=== PATIENT | female | born 1945 | race Caucasian/White ===

== ENCOUNTER → 2016-11-03 | Outpatient (CLI) | payer MEDICARE, OTHER ==
[~2016-11-03] MED LIST: ALBU2.5V7 AEROSOL; ATOR20TA18 PO; BUDE0.5A IH; CALC1TAB47 PO; CETI10TA4 PO; CODE30TA2 PO; CYCL-375 PO; DOCU-168 PO; FENT1PAT65 TOP; FURO-33 PO; HUM10VIA SQ; LACT1CAP50 PO; LISI-621 PO; METF500T4 PO; OMEP-29 PO; ONDA4TAB10 PO; OXYB5TAB PO; [UNRECOGNIZED DRUG - CODE] PO
[2016-11-03 12:51] LABS: BASOPHILS % (AUTO) 0.4 % (0-2); EOSINOPHILS # (AUTO) 0.3 T/MM3 (0-0.5); EOSINOPHILS % (AUTO) 3.3 % (0-4); HCT - HEMATOCRIT 38.8 % (36-46); HGB - HEMOGLOBIN 12.8 GM/DL (12-16); IMMATURE GRANULOCYTE # (AUTO) 0.01 T/MM3 (0.00-0.03); IMMATURE GRANULOCYTE % (AUTO) 0.1 % (0.0-0.5); LYMPHOCYTES # (AUTO) 2.2 T/MM3 (1-4.8); LYMPHOCYTES % (AUTO) 25.8 % (23-45); MEAN CORPUSCULAR HGB 31.4 UUG (26-34); MEAN CORPUSCULAR VOLUME 95.3 UM3 (80-100); MEAN PLATELET VOLUME 9.8 UM3 (9.4-12.4); MONOCYTES # (AUTO) 0.6 T/MM3 (0-0.8); MONOCYTES % (AUTO) 6.7 % (0-9.0); NEUTROPHILS #(AUTO)-ABSOLUTE 5.4 T/MM3 (1.8-7.7); NEUTROPHILS % (AUTO) 63.7 % (33-66); RED BLOOD COUNT 4.07 M/MM3 (4.00-5.20); WBC - WHITE BLOOD COUNT 8.5 T/MM3 (4.5-11.0)
== END ==
LOC: LAB 12:20
PROVIDERS: ATTEND Family Medicine
DX: N39.0 Urinary tract infection, site not specified (principal); R53.83 Other fatigue; I10 Essential (primary) hypertension
CPT/HCPCS: 36415; 84550; 85025

== ENCOUNTER 2017-07-18 00:17 | Inpatient (IN) ==
[2017-07-18] MEDS ORDERED: NS 1,000 ML IV ONE (00:24)
--- NOTE | 2017-07-18 00:26 | Emergency Department Report ---
General Adult HPI - General Stated complaint: High blood sugar Time Seen by Provider: 07/18/17 00:22 Source: EMS Mode of arrival: EMS Limitations: altered mental status - History of Present Illness HPI narrative: Patient is a 72-year-old female brought to the emergency department via EMS. Patient does have a history of diabetes, hypertension, asthma. EMS was originally called out for possible CODE BLUE. Patient was sitting on a toilet in a bathroom at work, unresponsive leaning to the left. Patient was originally thought to not be breathing, however patient was found to be breathing, EMS was called. Patient was tachycardic and hypertensive very agitated on arrival by EMS. EMS obtained blood sugar that was listed as "high" on their machine, unable to start IV her receive other laboratories. Patient was restrained to the gurney and brought to the ER for evaluation. On arrival patient hypertensive tachycardic, yelling for help, does not respond to questions - Related Data Home Medications Medication Instructions Recorded Confirmed Calcium Carbonate/Vitamin D3 1 tab PO DAILY #0 04/05/10 05/26/17 (Oyst-Khoa D Tablet) Furosemide 40 mg PO DAILY #0 04/05/10 05/26/17 Vitamin E Mixed (Vitamin E) 1 tab PO BID #0 04/05/10 05/26/17 Omeprazole 20 mg PO DAILY #0 11/28/10 05/26/17 Atorvastatin Calcium [Lipitor] 20 mg PO DAILY #0 tab 09/13/13 05/26/17 Budesonide 0.5 mg IH BID PRN #0 ampul 09/13/13 05/26/17 Albuterol Sulfate 2.5 mg AEROSOL Q4-6H PRN #0 02/05/15 05/26/17 Metformin HCl 500 mg PO BIDWM #0 02/05/15 05/26/17 fentaNYL [Fentanyl] 1 patch TOP Q72H #0 patch 02/05/15 05/26/17 Lactobacillus Acidophilus 1 mg PO DAILY #0 05/14/15 05/26/17 [Acidophilus Probiotic] Ondansetron [Ondansetron Odt] 4 mg PO Q6HR #0 tab 05/14/15 05/26/17 Oxybutynin Chloride [Oxybutynin 5 mg PO DAILY #0 05/14/15 05/26/17 Chloride ER] Colace (Docusate sodium) 100 mg 100 mg PO BID #0 cap 12/13/16 05/26/17 capsule Phenergan (Promethazine) 6.25 mg/5 25 mg PO .prn PRN ml 12/13/16 05/26/17 mL syrup Zyrtec (Cetirizine) 10 mg tablet 10 mg PO DAILY PRN tab 12/13/16 05/26/17 blood sugar diagnostic strips See Dose Instructions .ROUTE 12/13/16 05/26/17 .MEDSUPPLY cyclobenzaprine 10 mg tablet 10 mg PO DAILY #0 tab 12/13/16 05/26/17 insulin syringe-needle U-100 1 mL See Dose Instructions .ROUTE 12/13/16 05/26/17 31 gauge x 11/08" .MEDSUPPLY lisinopril 20 mg tablet 20 mg PO DAILY #0 tab 12/13/16 05/26/17 magnesium oxide 500 mg capsule 500 mg PO .prn cap 12/13/16 05/25/17 Previous Rx's Medication Instructions Recorded Ciprofloxacin HCl [Cipro] 500 mg PO BID #14 tab 05/26/17 Prochlorperazine Supp [Compazine 0 mg RECTALLY Q12HR PRN #10 05/26/17 Supp] suppositor Novolin 70/30 100 unit/mL See Label Instructions SQ .COMPLEX 06/09/17 subcutaneous suspension #10 ml NS Allergies Allergy/AdvReac Type Severity Reaction Status Date / Time erythromycin base Allergy Severe HIVES, Verified 07/18/17 01:30 TROUBLE BREATHING acetaminophen Allergy Unknown HIVES Verified 07/18/17 01:30 aspirin Allergy Unknown HIVES Verified 07/18/17 01:30 cefaclor Allergy Unknown HIVES, Verified 07/18/17 01:30 SWELLING, TROUBLE BREATHING ibuprofen Allergy Unknown HIVES Verified 07/18/17 01:30 latex Allergy Unknown HIVES Verified 07/18/17 01:30 NSAIDS (Non-Steroidal Allergy Unknown HIVES Verified 07/18/17 01:30 Anti-Inflamma oxycodone Allergy Unknown Verified 07/18/17 01:30 Penicillins Allergy Unknown HIVES, Verified 07/18/17 01:30 SWELLING, TROUBLE BREATHING tramadol HCl Allergy Unknown Uncoded 07/18/17 01:30 Review of Systems Limitations: ROS unobtainable due to patient's medical condition (patient not responding to questions, very agitated) PFS Patient Stated Medical History Migraine Yes Cataracts Yes Hypertension Yes Asthma Yes Bronchitis Yes Chronic Obstructive Pulmonary Yes Disease (COPD) Pneumonia Yes Diabetes Mellitus Type 2 Yes Ulcer Yes Hx Renal Disease Yes Hx Urinary Tract Infection Yes Osteoarthritis Yes MRSA Yes Shingles Yes Depression Yes Clinic Medical History Diabetes mellitus type 2, uncontrolled, without complications (Chronic Medical ~ 1970) Variable control. Will need to check A1c. senior care current use of insulin (Chronic Medical) Diabetic peripheral neuropathy associated with type 2 diabetes mellitus ( Chronic Medical) No objective findings today. Diabetic nephropathy associated with type 2 diabetes mellitus (Chronic Medical ~ 08/2016) Will need to recheck next visit, as she already voided. Hyperlipidemia LDL goal <100 (Chronic Medical) Hypertension (Chronic Medical) High today. Obesity (BMI 30-39.9) (Chronic Medical) Surgical History: Hysterectomy: 34+ years ago Family History: Family History Father Heart disease Paternal Grandfather Heart disease Mother , Bone Marrow Cancer Cancer Mental retardation Maternal Grandmother Heart attack Maternal Aunt Breast cancer Brother Mental retardation Sister Mental retardation - Social History Smoking status: Never smoker Substance use type: does not use Alcohol intake frequency: does not drink Physical Exam - Limitations Limitations: altered mental status - General General appearance: alert - Head Head exam: normocephalic - Eye Eye exam: Present: PERRL, EOMI - ENT ENT exam: Present: mucous membranes moist - Neck Neck exam: Present: full ROM, trachea midline - Chest Chest inspection: Present: symmetric chest wall rise. Absent: tenderness - Respiratory Respiratory exam: Present: wheezes, crackles - Cardiovascular Cardiovascular exam: Present: normal rhythm, tachycardia, normal heart sounds. Absent: regular rate - Abdominal Exam Abdominal exam: Present: soft. Absent: distention, tenderness - Skin Skin exam: Present: warm, dry Course Vital Signs Temperature 97.6 F 07/18/17 00:17 Pulse Rate 116 H 07/18/17 00:17 Respiratory Rate 24 07/18/17 00:17 Blood Pressure 132/92 H 07/18/17 00:17 Pulse Oximetry 91 07/18/17 00:17 Temperature 97.6 F 07/18/17 00:17 Pulse Rate 93 07/18/17 06:07 Respiratory Rate 16 07/18/17 07:10 Blood Pressure 184/128 H 07/18/17 05:30 Pulse Oximetry 98 07/18/17 07:10 Procedures - Intubation Time out performed: Yes sedative: Versed Mg Given: 16 paralytic: Rocuronium Mg Given: 40 Laryngoscope: fiber optic video scope ET Tube Size: 7.5 ET Tube Uncuffed: No Tube Secured Depth (cm): 22 Tube Secured Location: teeth Tube Placement Confirmation: visualized tube passing through cords, equal breath sounds bilaterally, no breath sounds over epigastrium, confirmation by capnometry Patient Tolerated Procedure: well Additional Comments: Patient doing well post intubation, however after return from CT scan patient's O2 saturations dropped, chest x-ray at that time showed mainstem, tube was pulled back 2 cm Medical Decision Making - Medical Records Medical records reviewed: Yes: I reviewed the patient's medical records. - Lab Data Lab results reviewed: Yes: I reviewed the patient's lab results. Result diagrams: 07/18/17 00:23 07/18/17 00:23 Lab Results 07/18/17 07/18/17 07/18/17 Range/Units 00:23 00:23 00:49 WBC 7.7 (4.5-11.0) T/MM3 RBC 4.67 (4.00-5.20) M/MM3 Hgb 14.2 (12-16) GM/DL Hct 42.5 (36-46) % MCV 91.0 (80-100) UM3 MCH 30.4 (26-34) UUG MCHC 33.4 (31-37) GM/DL RDW Std Deviation 41.3 (36.9-50.2) FL Plt Count 262 (130-400) T/MM3 MPV 10.9 (9.4-12.4) UM3 Immature Gran % (Auto) 0.3 (0.0-0.5) % Neut % (Auto) 59.1 (33-66) % Lymph % (Auto) 31.8 (23-45) % [place] % (Auto) 6.6 (0-9.0) % Eos % (Auto) 1.8 (0-4) % Baso % (Auto) 0.4 (0-2) % Neut # (Auto) 4.6 (1.8-7.7) T/MM3 Lymph # (Auto) 2.5 (1-4.8) T/MM3 [place] # (Auto) 0.5 (0-0.8) T/MM3 Eos # (Auto) 0.1 (0-0.5) T/MM3 Baso # (Auto) 0.0 (0-0.2) T/MM3 Abs Immat Gran (auto) 0.02 (0.00-0.03) T/MM3 ABG pH (7.350-7.450) ABG pCO2 (34-45) MMHG ABG pO2 (80-100) MMHG ABG HCO3 (22-26) MEQ/L ABG Total CO2 (23-27) MEQ/L ABG O2 Saturation (95.0-98.0) % ABG Base Excess (-2.0-2.0) MMOL/L O2 Delivery Method FiO2 % Turbidity 33 H (0-20) Sodium 129 L (134-144) MEQ/L Potassium 4.5 (3.6-5) MEQ/L Chloride 92 L (98-107) MEQ/L Carbon Dioxide 28 (22-30) MEQ/L Anion Gap 9 (5-15) MEQ/L BUN 31.0 H (7-17) MG/DL Creatinine 0.7 (0.7-1.2) MG/DL GFR Calculation 82 BUN/Creatinine Ratio 44 H (6-26) RATIO Glucose 945 H* (65-110) MG/DL Calculated Osmolality 303 H (261-280) MOSM/KG Calcium 9.2 (8.4-10.2) MG/DL Total Bilirubin 0.40 (0.20-1.30) MG/DL Icterus Index < 2 (0-7) AST 19 (14-36) U/L ALT 31 (9-52) U/L Alkaline Phosphatase 156 H (38-126) U/L Troponin I < 0.012 (0-0.12) ng/ml Total Protein 7.4 (6.3-8.2) G/DL Albumin 3.9 (3.5-5.0) G/DL Globulin 3.5 (2.4-3.6) G/DL Albumin/Globulin Ratio 1.1 (1.1-2.2) RATIO Plasma Lactate (0.6-2.2) MMOL/L Procalcitonin NG/ML Specimen Hemolysis < 15 (0-25) Ur Collection Type Urine Color (YELLOW) Urine Clarity Urine pH (5.0-8.0) Ur Specific [place] (1.015-1.025) Urine Protein (NEGATIVE) Urine Glucose (UA) (NEGATIVE) Urine Ketones (NEGATIVE) Urine Occult Blood (NEGATIVE) Urine Nitrate (NEGATIVE) Urine Bilirubin (NEGATIVE) Urine Urobilinogen (NORMAL) EU/DL Ur Leukocyte Esterase (NEGATIVE) Urine RBC (0-3) /HPF Urine WBC (0-5) /HPF Urine Bacteria (NEGATIVE) Ur Culture Indicated? Urine Opiates Screen ng/mL Ur Oxycodone Screen ng/mL Urine Methadone Screen ng/mL Ur Propoxyphene Screen ng/mL Ur Barbiturates Screen ng/mL U Tricyclic Antidepress ng/mL Ur Phencyclidine Scrn ng/mL Ur Amphetamines Screen ng/mL U Methamphetamines Scrn ng/mL U Benzodiazepines Scrn ng/mL Urine Cocaine Screen ng/mL U Cannabinoids Screen ng/mL Influenza Type A (PCR) Negative (Negative) Influenza Type B (PCR) Negative (Negative) 07/18/17 07/18/17 07/18/17 Range/Units 01:42 01:56 01:56 WBC (4.5-11.0) T/MM3 RBC (4.00-5.20) M/MM3 Hgb (12-16) GM/DL Hct (36-46) % MCV (80-100) UM3 MCH (26-34) UUG MCHC (31-37) GM/DL RDW Std Deviation (36.9-50.2) FL Plt Count (130-400) T/MM3 MPV (9.4-12.4) UM3 Immature Gran % (Auto) (0.0-0.5) % Neut % (Auto) (33-66) % Lymph % (Auto) (23-45) % [place] % (Auto) (0-9.0) % Eos % (Auto) (0-4) % Baso % (Auto) (0-2) % Neut # (Auto) (1.8-7.7) T/MM3 Lymph # (Auto) (1-4.8) T/MM3 [place] # (Auto) (0-0.8) T/MM3 Eos # (Auto) (0-0.5) T/MM3 Baso # (Auto) (0-0.2) T/MM3 Abs Immat Gran (auto) (0.00-0.03) T/MM3 ABG pH 7.280 L (7.350-7.450) ABG pCO2 61 H* (34-45) MMHG ABG pO2 124 H (80-100) MMHG ABG HCO3 29 H (22-26) MEQ/L ABG Total CO2 30.6 H (23-27) MEQ/L ABG O2 Saturation 98.0 (95.0-98.0) % ABG Base Excess 0.7 (-2.0-2.0) MMOL/L O2 Delivery Method Vent, adult % FiO2 % 100 Turbidity (0-20) Sodium (134-144) MEQ/L Potassium (3.6-5) MEQ/L Chloride (98-107) MEQ/L Carbon Dioxide (22-30) MEQ/L Anion Gap (5-15) MEQ/L BUN (7-17) MG/DL Creatinine (0.7-1.2) MG/DL GFR Calculation BUN/Creatinine Ratio (6-26) RATIO Glucose (65-110) MG/DL Calculated Osmolality (261-280) MOSM/KG Calcium (8.4-10.2) MG/DL Total Bilirubin (0.20-1.30) MG/DL Icterus Index (0-7) AST (14-36) U/L ALT (9-52) U/L Alkaline Phosphatase (38-126) U/L Troponin I (0-0.12) ng/ml Total Protein (6.3-8.2) G/DL Albumin (3.5-5.0) G/DL Globulin (2.4-3.6) G/DL Albumin/Globulin Ratio (1.1-2.2) RATIO Plasma Lactate (0.6-2.2) MMOL/L Procalcitonin NG/ML Specimen Hemolysis (0-25) Ur Collection Type Urine, void-cc/notcc Urine Color Yellow (YELLOW) Urine Clarity Clear Urine pH 6.5 (5.0-8.0) Ur Specific [place] <=1.005 L (1.015-1.025) Urine Protein 2+ A (NEGATIVE) Urine Glucose (UA) 3+ A (NEGATIVE) Urine Ketones Negative (NEGATIVE) Urine Occult Blood 1+ A (NEGATIVE) Urine Nitrate Negative (NEGATIVE) Urine Bilirubin Negative (NEGATIVE) Urine Urobilinogen 0.2 (NORMAL) EU/DL Ur Leukocyte Esterase Negative (NEGATIVE) Urine RBC 1-3 (0-3) /HPF Urine WBC 0-1 (0-5) /HPF Urine Bacteria None seen (NEGATIVE) Ur Culture Indicated? Cult not indicated Urine Opiates Screen Negative ng/mL Ur Oxycodone Screen Negative ng/mL Urine Methadone Screen Negative ng/mL Ur Propoxyphene Screen Negative ng/mL Ur Barbiturates Screen Negative ng/mL U Tricyclic Antidepress Negative ng/mL Ur Phencyclidine Scrn Negative ng/mL Ur Amphetamines Screen Negative ng/mL U Methamphetamines Scrn Negative ng/mL U Benzodiazepines Scrn Negative ng/mL Urine Cocaine Screen Negative ng/mL U Cannabinoids Screen Negative ng/mL Influenza Type A (PCR) (Negative) Influenza Type B (PCR) (Negative) 07/18/17 07/18/17 Range/Units 01:56 01:56 WBC (4.5-11.0) T/MM3 RBC (4.00-5.20) M/MM3 Hgb (12-16) GM/DL Hct (36-46) % MCV (80-100) UM3 MCH (26-34) UUG MCHC (31-37) GM/DL RDW Std Deviation (36.9-50.2) FL Plt Count (130-400) T/MM3 MPV (9.4-12.4) UM3 Immature Gran % (Auto) (0.0-0.5) % Neut % (Auto) (33-66) % Lymph % (Auto) (23-45) % [place] % (Auto) (0-9.0) % Eos % (Auto) (0-4) % Baso % (Auto) (0-2) % Neut # (Auto) (1.8-7.7) T/MM3 Lymph # (Auto) (1-4.8) T/MM3 [place] # (Auto) (0-0.8) T/MM3 Eos # (Auto) (0-0.5) T/MM3 Baso # (Auto) (0-0.2) T/MM3 Abs Immat Gran (auto) (0.00-0.03) T/MM3 ABG pH (7.350-7.450) ABG pCO2 (34-45) MMHG ABG pO2 (80-100) MMHG ABG HCO3 (22-26) MEQ/L ABG Total CO2 (23-27) MEQ/L ABG O2 Saturation (95.0-98.0) % ABG Base Excess (-2.0-2.0) MMOL/L O2 Delivery Method FiO2 % Turbidity (0-20) Sodium (134-144) MEQ/L Potassium (3.6-5) MEQ/L Chloride (98-107) MEQ/L Carbon Dioxide (22-30) MEQ/L Anion Gap (5-15) MEQ/L BUN (7-17) MG/DL Creatinine (0.7-1.2) MG/DL GFR Calculation BUN/Creatinine Ratio (6-26) RATIO Glucose (65-110) MG/DL Calculated Osmolality (261-280) MOSM/KG Calcium (8.4-10.2) MG/DL Total Bilirubin (0.20-1.30) MG/DL Icterus Index (0-7) AST (14-36) U/L ALT (9-52) U/L Alkaline Phosphatase (38-126) U/L Troponin I (0-0.12) ng/ml Total Protein (6.3-8.2) G/DL Albumin (3.5-5.0) G/DL Globulin (2.4-3.6) G/DL Albumin/Globulin Ratio (1.1-2.2) RATIO Plasma Lactate 1.4 (0.6-2.2) MMOL/L Procalcitonin < 0.05 NG/ML Specimen Hemolysis (0-25) Ur Collection Type Urine Color (YELLOW) Urine Clarity Urine pH (5.0-8.0) Ur Specific [place] (1.015-1.025) Urine Protein (NEGATIVE) Urine Glucose (UA) (NEGATIVE) Urine Ketones (NEGATIVE) Urine Occult Blood (NEGATIVE) Urine Nitrate (NEGATIVE) Urine Bilirubin (NEGATIVE) Urine Urobilinogen (NORMAL) EU/DL Ur Leukocyte Esterase (NEGATIVE) Urine RBC (0-3) /HPF Urine WBC (0-5) /HPF Urine Bacteria (NEGATIVE) Ur Culture Indicated? Urine Opiates Screen ng/mL Ur Oxycodone Screen ng/mL Urine Methadone Screen ng/mL Ur Propoxyphene Screen ng/mL Ur Barbiturates Screen ng/mL U Tricyclic Antidepress ng/mL Ur Phencyclidine Scrn ng/mL Ur Amphetamines Screen ng/mL U Methamphetamines Scrn ng/mL U Benzodiazepines Scrn ng/mL Urine Cocaine Screen ng/mL U Cannabinoids Screen ng/mL Influenza Type A (PCR) (Negative) Influenza Type B (PCR) (Negative) - Radiology Data Radiology results reviewed: Yes: I reviewed the patient's radiology results. White out of left lung, endotracheal tube appears to be mainstem pullback [address] head: No acute intracranial findings - EKG Data EKG #1 EKG attestation: Yes: I reviewed and interpreted this EKG. EKG shows normal: sinus rhythm Rate: normal Rhythm: NSR [place]/QRS: normal Interpretation: no acute changes Critical Care Time Critical Care Time: Yes Total Critical Care Time: 78 Attestation: The high probability of a clinically significant, sudden or life threatening deterioration of the cardiopulmonary system(s) required my full and direct attention, intervention and personal management. The aggregate critical care time was 78 minutes. This time is in addition to time spent performing reported procedures but includes the following: X Data Review and interpretation X Patient assessment and monitoring of vital signs X Documentation X Medication orders and management Disposition Clinical Impression: Aspiration pneumonitis, Acute on chronic alteration in mental status Disposition: 02 To [facility] [place] Acute Care Condition: Stable - Seen By: physician
[2017-07-18] MEDS ORDERED: NS 1,000 ML IV SCH ×2 (01:30→04:07)
[2017-07-18] MEDS ORDERED: INSULIN REGULAR, HUMAN 100 UNIT/ML INJECTION IVP ONE (01:32)
[2017-07-18] MEDS ORDERED: MIDAZOLAM 5mg/5ml INJECTION IVP ONE ×2 (01:32→02:26)
[2017-07-18] MEDS ORDERED: ROCURONIUM 50 MG/5 ML INJECTION IVP ONE (01:32)
[2017-07-18] MEDS: SALINE FLUSH 10ml SYRINGE IVF PRN (01:36)
[2017-07-18] MEDS ORDERED: LABETALOL 100mg/20ml INJECTION IVP ONE (02:32)
[2017-07-18] MEDS ORDERED: LEVOFLOXACIN PB 750 MG/150 ML BAG IV SCH (03:00)
[2017-07-18] MEDS ORDERED: PROPOFOL 200 MG/20 ML INJECTION IVP ONE (03:05)
[2017-07-18] MEDS: PROPOFOL 1,000 MG/100 ML VIAL IV PRN ×5 (03:25→21:30)
[2017-07-18] MEDS ORDERED: INSULIN DETEMIR 100unit/ml INJECTION SQ SCH (04:07)
[2017-07-18] MEDS ORDERED: ONDANSETRON 4 MG/2 ML INJECTION IVP PRN (04:07)
[2017-07-18] MEDS ORDERED: AZTREONAM 1 G in NS 100 ML IV SCH (04:15)
--- NOTE | 2017-07-18 04:18 | History & Physical Report ---
History of Present Illness Date: 07/18/17 Chief complaint: none HPI: patient seen with nursing assistance on 07/18/2017 via telemedicine Ms. Sutherland is a 72yo woman with h/o DM2 on insulin, class 1 obesity BMI 33, COPD, essential HTN, but no CAD or CVA hx. She was acutely more confused according to her daughter last night after 2100 needing to use the bathroom but not able to recognize it was empty. She did not seem to understand things and ultimately lost consciousness with EMS activated and her having a pulse the whole time, but losing respiratory drive and subsequently intubated in the ED after versed and succ. Please Dr. Davila's ED documentation. Patient has been busy caring for family members and has neglected her own care with missed insulin dosing and increased cough over the last 2 months per daughter at the bedside in the ICU room. No over noted n/v/diarrhea. had been able to eat. Unsure of cbgs. Review of Systems All systems PM: 10-point ROS was reviewed, no additional remarkable complaints except Past Medical History Clinic Medical History Diabetes mellitus type 2, uncontrolled, without complications (Chronic Medical ~ 1970) Variable control. Will need to check A1c. 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 Diabetic nephropathy associated with type 2 diabetes mellitus (Chronic Medical ~ 08/2016) Will need to recheck next visit, as she already voided. Hyperlipidemia LDL goal <100 (Chronic Medical) Hypertension (Chronic Medical) High today. Obesity (BMI 30-39.9) (Chronic Medical) Surgical History: Hysterectomy: 34+ years ago Family History: Family History Father Heart disease Paternal Grandfather Heart disease Mother , Bone Marrow Cancer Cancer Mental retardation Maternal Grandmother Heart attack Maternal Aunt Breast cancer Brother Mental retardation Sister Mental retardation Family History Updates: CAD father 60s, see prior with mom leukemia - Social History Smoking status: Never smoker Substance use type: does not use Housing: house Household members: children Current occupational status: employed Medications Home Medications Medication Instructions Recorded Confirmed Type Calcium Carbonate/Vitamin D3 1 tab PO DAILY #0 04/05/10 05/26/17 History (Oyst-Khoa D Tablet) Furosemide 40 mg PO DAILY #0 04/05/10 05/26/17 History Vitamin E Mixed (Vitamin E) 1 tab PO BID #0 04/05/10 05/26/17 History Omeprazole 20 mg PO DAILY #0 11/28/10 05/26/17 History Atorvastatin Calcium [Lipitor] 20 mg PO DAILY #0 tab 09/13/13 05/26/17 History Budesonide 0.5 mg IH BID PRN #0 ampul 09/13/13 05/26/17 History Albuterol Sulfate 2.5 mg AEROSOL Q4-6H PRN #0 02/05/15 05/26/17 History Metformin HCl 500 mg PO BIDWM #0 02/05/15 05/26/17 History fentaNYL [Fentanyl] 1 patch TOP Q72H #0 patch 02/05/15 05/26/17 History Lactobacillus Acidophilus 1 mg PO DAILY #0 05/14/15 05/26/17 History [Acidophilus Probiotic] Ondansetron [Ondansetron Odt] 4 mg PO Q6HR #0 tab 05/14/15 05/26/17 History Oxybutynin Chloride [Oxybutynin 5 mg PO DAILY #0 05/14/15 05/26/17 History Chloride ER] Colace (Docusate sodium) 100 mg 100 mg PO BID #0 cap 12/13/16 05/26/17 History capsule Phenergan (Promethazine) 6.25 mg/5 25 mg PO .prn PRN ml 12/13/16 05/26/17 History mL syrup Zyrtec (Cetirizine) 10 mg tablet 10 mg PO DAILY PRN tab 12/13/16 05/26/17 History blood sugar diagnostic strips See Dose Instructions .ROUTE 12/13/16 05/26/17 History .MEDSUPPLY cyclobenzaprine 10 mg tablet 10 mg PO DAILY #0 tab 12/13/16 05/26/17 History insulin syringe-needle U-100 1 mL See Dose Instructions .ROUTE 12/13/16 History 31 gauge x 11/08" .MEDSUPPLY lisinopril 20 mg tablet 20 mg PO DAILY #0 tab 12/13/16 05/26/17 History magnesium oxide 500 mg capsule 500 mg PO .prn cap 12/13/16 05/25/17 History Allergies Allergy/AdvReac Type Severity Reaction Status Date / Time erythromycin base Allergy Severe HIVES, Verified 07/18/17 01:30 TROUBLE BREATHING acetaminophen Allergy Unknown HIVES Verified 07/18/17 01:30 aspirin Allergy Unknown HIVES Verified 07/18/17 01:30 cefaclor Allergy Unknown HIVES, Verified 07/18/17 01:30 SWELLING, TROUBLE BREATHING ibuprofen Allergy Unknown HIVES Verified 07/18/17 01:30 latex Allergy Unknown HIVES Verified 07/18/17 01:30 NSAIDS (Non-Steroidal Allergy Unknown HIVES Verified 07/18/17 01:30 Anti-Inflamma oxycodone Allergy Unknown Verified 07/18/17 01:30 Penicillins Allergy Unknown HIVES, Verified 07/18/17 01:30 SWELLING, TROUBLE BREATHING tramadol HCl Allergy Unknown Uncoded 07/18/17 01:30 Exam Vital Signs: Temperature 97.6 F 07/18/17 00:17 Pulse Rate 116 H 07/18/17 00:23 Respiratory Rate 12 07/18/17 00:23 Blood Pressure 132/92 H 07/18/17 00:17 Pulse Oximetry 95 07/18/17 00:23 Telemetry Rhythm: Sinus Rhythm Height/Weight/BMI: Height 1.55 m Weight 81 kg Body Mass Index 33.7 - Constitutional Present: no acute distress, obese - Routine HEENT Exam Head: Present: normocephalic - Routine Respiratory Exam Comments: rales and rhonchi on the left with no wheeze - Routine Cardiovascular Exam Present: RRR, S1, S2 - Routine Abdominal Exam Present: soft, normoactive bowel sounds - Routine Skin Exam Present: intact. Absent: cyanosis - Routine Neurological Exam sedated on the ventilator with pupils symmetric Results - Labs CBC & Chem 7: 07/18/17 00:23 07/18/17 00:23 Assessment and Plan (1) Acute respiratory failure with hypoxia and hypercapnia Current visit: Yes Status: Acute (2) CAP (community acquired pneumonia) Current visit: Yes Status: Acute (3) Nonketotic hyperglycinemia Current visit: Yes Status: Acute (4) Metabolic encephalopathy Current visit: Yes Status: Acute (5) Diabetes mellitus type 2, uncontrolled, without complications Problem details: Variable control. Will need to check A1c. Current visit: No Status: Chronic (6) Hypertension Problem details: High today. Current visit: No Status: Chronic (7) Obesity (BMI 30-39.9) Current visit: No Status: Chronic Assessment and Plan: 1. Acute respiratory failure with hypercapnea and hypoxia--admit to ICU on ventilator with CAP vs aspiration. Vanco and Aztreonam based on allergies, given levaquin in ED. f/u cxs with combivent, RT protocols, 0700 vbg. If does not improve over 2 days may need pulm eval for bronch 2. Nonketotic hyperosmolar syndrome with associated metabolic encephalopathy not taking care of her DM2--insulin 20 units detemir with SSI, CBGs, A1C check. May need insulin gtt pending repeat value and given NS liters. Recheck troponin. 3. Pseudohyponatremia 4. COPD with no wheezing currently, but may need steroids. No tobacco now. 5. Class 1 obesity BMI 33 6. Essential HTN, hold home meds. 7. Dyslipidemia Full code per daughter DVT prophylaxis. Addendum: HPI: Mrs. Sutherland remains intubated and unresponsive on propofol drip in critical condition. Further history from the family indicates that she has been on chronic narcotics including the 25 g fentanyl patch and oxy IR. It is unknown why she tested negative for opiates on her urine drug screen. The family INSISTS that she is terribly allergic to acetaminophen aspirin and all nonsteroidal anti-inflammatory's. ROS, medical history, surgical history, social history, family history: have read and agree with Dr. Zhu's assessment Physical exam: patient remains critically ill intubated and irritable but not coherently responsive. Blood pressures have swung wildly auscultation of chest remains coarse patient remains in restraints with ET and OG tube Lab work in imaging: agree with above but have concerns that patient's entire left lung appears occluded. This raises question of aspiration and I've ordered a CT of the chest Assessment and plan: agree with the diagnoses listed above by Dr. Zhu with following modifications: aspiration complete apace the of the left lung is concerning for aspiration and have ordered a chest CT Will discuss with Dr. Matson in pulmonary tomorrow to see if bronchoscopy and pulmonary toilet is required elevated troponin: started patient on therapeutic Lovenox but family has declined aspirin. Patient has significant risk factors for coronary artery disease but this may be a type to non-ST elevated CT. I have discussed the case with Dr. Singh. My appreciation for his input already history of opiate dependence: concerning that there is diversion within the family. No unwitnessed opiate medications to be given DISPOSITION: 45 minutes critical care time without procedures performed thus far DVT Prophylaxis: SCD's Resuscitation Status: Full Code - Physician Narrative Narrative: Date: 07/18/17 Time: 413 Hospital Course Summary Disclaimer: The visit summary below is not to be considered part of the above Progress Note.
[2017-07-18] MEDS: FentaNYL 100 MCG/2 ML INJECTION IVP PRN ×3 (05:47→15:40)
[2017-07-18] MEDS: INSULIN REGULAR, HUMAN 100 UNIT/ML INJECTION SQ PRN ×2 (06:48→14:19)
[2017-07-18] MEDS ORDERED: Ipatropium/Albuterol 20/100mcg INHALER (4gm) ORAL INH SCH (07:00)
[2017-07-18] MEDS: ALBUTEROL/IPRATROPIUM 2.5mg-0.5mg/3ml NEB AEROSOL SCH ×4 (07:08→21:15)
--- NOTE | 2017-07-18 08:24 | XRay Report ---
Indication: cough shortness of air PROCEDURE: XR chest 1V: Encounter: Initial Comparison: 05/28/2016 Findings: There is an ET tube in place with its tip in the right mainstem bronchus. There is complete collapse of the left lung with shift of the mediastinum to the left. The right lung appears hyperinflated. No pneumothorax. No definite pleural effusion. There is an NG tube in place with its tip distal to the GE junction. Impression: Right mainstem intubation. By report this was immediately recognized and withdrawn 2 cm with noted immediate clinical improvement. .
--- NOTE | 2017-07-18 08:26 | CT Scan Report ---
Indication: acutely altered mental status PROCEDURE: CT head/brain wo con: Encounter: Initial Comparison: 05/26/2017 Findings: There is mild prominence of the ventricles and sulci compatible with cortical atrophy. There is no mass, mass effect, or midline shift. No evidence for intracranial hemorrhage. No intra or extra-axial fluid collections. No evidence for depressed skull fracture. There are scattered inflammatory changes of the bilateral maxillary and anterior ethmoidal air cells as well as a small amount of free fluid in the posterior right sphenoidal sinus.. IMPRESSION: Mild cortical atrophy. No evidence for acute cortical infarct, intracranial hemorrhage, or mass. Preliminary report was provided by Sy arce .
[2017-07-18] MEDS ORDERED: ENOXAPARIN 40 MG/0.4 ML INJECTION SQ SCH (09:00)
[2017-07-18] MEDS ORDERED: VANCOMYCIN - PHARMACY CONSULT MC ONE (09:02)
--- NOTE | 2017-07-18 09:11 | Pharmacy Consult-Antibiotics ---
Pharmacy Consult-Vancomycin - Laboratory Information WBC 7.7 T/MM3 (4.5-11.0) 07/18/17 00:23 BUN 31.0 MG/DL (7-17) H 07/18/17 00:23 Creatinine 0.7 MG/DL (0.7-1.2) 07/18/17 00:23 Procalcitonin < 0.05 NG/ML 07/18/17 01:56 - Consult Information VANCOMYCIN CONSULT: Dx: CAP Current Renal Fx: SCr = 0.7mg/dl. Will give Vancomycin 1,000mg IV q12hrs. Will continue to monitor and adjust regimen to maintain therapeutic levels. Thank you.
[2017-07-18] MEDS ORDERED: METOPROLOL 5mg/5ml INJECTION IVP PRN (10:09)
[2017-07-18] MEDS ORDERED: INSULIN REGULAR, HUMAN 100 UNIT/ML INJECTION SQ ONE (10:33)
[2017-07-18] MEDS: AZTREONAM 1 G in NS 100 ML IV SCH ×2 (12:39→18:44)
[2017-07-18] MEDS: NS 1,000 ML IV SCH ×3 (16:05→22:34)
[2017-07-18] MEDS ORDERED: ASPIRIN 600 MG RECTAL SUPPOSITORY RECTALLY SCH (16:30)
--- NOTE | 2017-07-18 18:48 | Cardiology Consult Note ---
History of Present Illness Chief complaint: elevated troponin History of present illness: 72-year-old uncontrolled diabetic patient without prior known heart disease, no previous stress test , heart Heart catheter or VT. Admitted to [facility] emergency room for evaluation of her visual hallucinations altered consciousness convulsions and severe hyperglycemia. Patient went into respiratory failure currently intubated with a darren out left hemithorax. 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 She never checked out. Via the emergency room 07/17/2017 admitted to hospitalist service intubated and treated for uncontrolled hyperglycemia. She was found to have elevated troponin is been trended kept climbing up to 1.6. EKG showed anterolateral T-wave inversion without ST depression or elevation, underlying normal sinus rhythm. No progressive changes of ischemia on serial EKGs. She is a currently sedated and intubated and unable to provide any history. Daughter at bedside history obtained from her as well as from Dr. [place] hospitalist. Records were reviewed together. Echocardiogram ordered and reviewed the bedside. Serial EKGs reviewed together as laboratory. Patient has been getting when necessary aspirin and full dose Lovenox was just ordered. Blood pressure has been quite labile control when necessary been administered. And has an OG tube in place. No significant arrhythmias reported by nursing staff or noted. PACs are present. No heart failure on chest x-ray. Echocardiogram shows good LV function and some aortic stenosis with a peak flow velocity 2.7 m/s, see full report. Review of Systems ROS unobtainable: due to endotracheal tube, due to mental status All systems PM: 10-point ROS was reviewed, no additional remarkable complaints except (for H&P) - Constitutional Constitutional: Present: as per HPI [facility] Clinic Medical History Diabetes mellitus type 2, uncontrolled, without complications (Chronic Medical ~ 1970) Variable control. Will need to check A1c. assisted current use of insulin (Chronic Medical) Diabetic peripheral neuropathy associated with type 2 diabetes mellitus ( Chronic Medical) No objective findings today. Diabetic nephropathy associated with type 2 diabetes mellitus (Chronic Medical ~ 08/2016) Will need to recheck next visit, as she already voided. Hyperlipidemia LDL goal <100 (Chronic Medical) Hypertension (Chronic Medical) High today. Obesity (BMI 30-39.9) (Chronic Medical) Surgical History: Hysterectomy: 34+ years ago Family History: Family History Father Heart disease Paternal Grandfather Heart disease Mother , Bone Marrow Cancer Cancer Mental retardation Maternal Grandmother Heart attack Maternal Aunt Breast cancer Brother Mental retardation Sister Mental retardation - Social History Smoking status: Never smoker Current residence: Apartment/Private Home Medications Home Medications Medication Instructions Recorded Confirmed Type Calcium Carbonate/Vitamin D3 1 tab PO DAILY #0 04/05/10 05/26/17 History (Oyst-Khoa D Tablet) Furosemide 40 mg PO DAILY #0 04/05/10 05/26/17 History Vitamin E Mixed (Vitamin E) 1 tab PO BID #0 04/05/10 05/26/17 History Omeprazole 20 mg PO DAILY #0 11/28/10 05/26/17 History Atorvastatin Calcium [Lipitor] 20 mg PO DAILY #0 tab 09/13/13 05/26/17 History Budesonide 0.5 mg IH BID PRN #0 ampul 09/13/13 05/26/17 History Albuterol Sulfate 2.5 mg AEROSOL Q4-6H PRN #0 02/05/15 05/26/17 History Metformin HCl 500 mg PO BIDWM #0 02/05/15 05/26/17 History fentaNYL [Fentanyl] 1 patch TOP Q72H #0 patch 02/05/15 05/26/17 History Lactobacillus Acidophilus 1 mg PO DAILY #0 05/14/15 05/26/17 History [Acidophilus Probiotic] Ondansetron [Ondansetron Odt] 4 mg PO Q6HR #0 tab 05/14/15 05/26/17 History Oxybutynin Chloride [Oxybutynin 5 mg PO DAILY #0 05/14/15 05/26/17 History Chloride ER] Colace (Docusate sodium) 100 mg 100 mg PO BID #0 cap 12/13/16 05/26/17 History capsule Phenergan (Promethazine) 6.25 mg/5 25 mg PO .prn PRN ml 12/13/16 05/26/17 History mL syrup Zyrtec (Cetirizine) 10 mg tablet 10 mg PO DAILY PRN tab 12/13/16 05/26/17 History blood sugar diagnostic strips See Dose Instructions .ROUTE 12/13/16 05/26/17 History .MEDSUPPLY cyclobenzaprine 10 mg tablet 10 mg PO DAILY #0 tab 12/13/16 05/26/17 History insulin syringe-needle U-100 1 mL See Dose Instructions .ROUTE 12/13/16 History 31 gauge x /16" .MEDSUPPLY lisinopril 20 mg tablet 20 mg PO DAILY #0 tab 12/13/16 05/26/17 History magnesium oxide 500 mg capsule 500 mg PO .prn cap 12/13/16 05/25/17 History Allergies Allergy/AdvReac Type Severity Reaction Status Date / Time erythromycin base Allergy Severe HIVES, Verified 07/18/17 01:30 TROUBLE BREATHING acetaminophen Allergy Unknown HIVES Verified 07/18/17 01:30 aspirin Allergy Unknown HIVES Verified 07/18/17 01:30 cefaclor Allergy Unknown HIVES, Verified 07/18/17 01:30 SWELLING, TROUBLE BREATHING ibuprofen Allergy Unknown HIVES Verified 07/18/17 01:30 latex Allergy Unknown HIVES Verified 07/18/17 01:30 NSAIDS (Non-Steroidal Allergy Unknown HIVES Verified 07/18/17 01:30 Anti-Inflamma oxycodone Allergy Unknown Verified 07/18/17 01:30 Penicillins Allergy Unknown HIVES, Verified 07/18/17 01:30 SWELLING, TROUBLE BREATHING tramadol HCl Allergy Unknown Uncoded 07/18/17 01:30 Exam Vital signs: Temperature 97.8 F 07/18/17 15:16 Pulse Rate 85 07/18/17 16:00 Respiratory Rate 16 07/18/17 16:00 Blood Pressure 194/81 H 07/18/17 15:16 Pulse Oximetry 97 07/18/17 16:00 - Constitutional no acute distress, obese, obtunded (sedated) - Routine HEENT Exam Head: Present: normocephalic, atraumatic Eye: Present: PERRL ENT: Present: mucous membranes moist - Routine Neck Exam Present: supple (short neck), normal carotid upstroke. Absent: JVD, carotid bruit, lymphadenopathy, thyromegaly - Routine Respiratory Exam Present: decreased breath sounds (markedly decreased left lung). Absent: CTA bilaterally (examined anteriorly, clear on the right, decreased respiratory sounds on the left), rales, respiratory distress, wheezes - Routine Cardiovascular Exam Present: RRR, murmur (3/6 harsh systolic murmur at the LVOT) - Routine Abdominal Exam Present: soft, normoactive bowel sounds, non distended, non tender. Absent: organomegaly - Routine Extremities Exam Present: no edema, normal capillary refill. Absent: cyanosis, clubbing, pulses intact (mildly decreased pulses in the right foot, which is relatively cooler than the left) - Routine Neurological Exam Present: altered mental status. Absent: alert, oriented X3 - Routine Psychiatric Exam Present: unable to assess Results 07/18/17 00:23 07/18/17 00:23 Cardiac Enzymes 07/18/17 07/18/17 Range/Units 06:50 14:13 Troponin I 0.536 H D 1.660 H D (0-0.12) ng/ml Intake and Output 07/18/17 07/18/17 07/18/17 06:59 14:59 22:59 Intake Total 492.526 / 9093.794 0677.233 / 1230.233 329.057 / 329.057 Output Total 2750 / 2750 1188 / 1188 Balance -2257.474 / -1257.474 42.233 / 42.233 329.057 / 329.057 Intake: IV 492.526 / 311.777 4883.233 / 1230.233 329.057 / 329.057 Aztreonam 1 g In Ns 100 ml @ 200 / 200 100 mls/hr IV Q6H SREEKANTH Rx#: [id number] Levofloxacin Pb 750 mg In 150 150 / 150 ml @ 100 mls/hr IV ONE TIME SREEKANTH Rx#:[id number] Ns 1,000 ml @ 100 mls/hr IV . 330.000 / 330.000 613.333 / 613.333 Q10H SREEKANTH Rx#:[id number] Propofol 1,000 mg In 100 ml @ 5 12.526 / 12.526 166.900 / 166.900 79.057 / 79.057 MCG/KG/MIN 2.574 mls/hr IV . Q24H PRN Rx#:[id number] Vancomycin 1,000 mg In NS 250ml 250 / 250 250 / 250 250 ml @ 250 mls/hr IV Q12H SREEKANTH Rx#:[id number] Output: Urine Amount (Catheter) 2550 / 2550 1188 / 1188 Gastric Drainage 200 / 200 Oral 200 / 200 Other: Urine Appearance Clear Clear Urine Color Yellow Pale Yellow Urine Odor Normal Weight 81 kg 78.3 kg Patient Weight 07/19/17 06:59 Weight 78.3 kg - EKG Interpretation EKG: sinus rhythm, not changed from: (on serial EKGs, still with lateral T- wave inversion in lateral leads 1 aVL and V3 through V6 without significant ST depression or elevation) Assessment and Plan - Assessment and Plan Elevated troponin , still rising without ST depression or elevation, differential diagnosis includes type II VT versus non-STEMI and a candidate only for medical therapy at present time due to acute comorbidities especially acute respiratory failure Aortic stenosis murmur, no severe Acute respiratory failure Darren out left hemithorax Uncontrolled diabetes mellitus, chronic, hemoglobin A1c over 13/diabetic coma Hypertension Dyslipidemia A cardiac standpoint supportive medical therapy is indicated at present time. We'll schedule by mouth beta blockers statin and aspirin, at this time to be administered through the OG tube Treat for acute VT with anticoagulation is reasonable, IV heparin protocol may have provided better control. Over subcutaneous Lovenox . I believe both are reasonable options. Recheck CBC tonight due to respiratory failure and darren out left hemithorax and the plan to start anticoagulation Continue to trend serial troponins until they peak Echocardiogram reviewed at the bedside Concur with your plans for chest CT scan pulmonary consultation possible bronchoscopy. Hospital Course Summary Disclaimer: The visit summary below is not to be considered part of the above Progress Note.
[2017-07-18] MEDS ORDERED: MORPHINE SULFATE 4mg INJECTION IVP ONE (19:33)
[2017-07-18] MEDS ORDERED: ENOXAPARIN 80 MG/0.8 ML INJECTION SQ SCH (21:00)
[2017-07-18] MEDS ORDERED: HEPARIN - PHARMACY CONSULT MC ONE (21:02)
[2017-07-18] MEDS: CLOPIDOGREL 75 MG TABLET NG SCH (21:06)
[2017-07-18] MEDS: ATORVASTATIN 40 MG TABLET NG SCH (21:06)
[2017-07-18] MEDS: HEPARIN DRIP 20,000 UNIT/500 ML BAG IV SCH (21:07)
[2017-07-19] MEDS: AZTREONAM 1 G in NS 100 ML IV SCH ×5 (00:03→23:31)
[2017-07-19] MEDS ORDERED: FUROSEMIDE 20 MG/2 ML INJECTION IVP ONE (01:09)
[2017-07-19] MEDS: PROPOFOL 1,000 MG/100 ML VIAL IV PRN ×3 (02:07→09:42)
[2017-07-19] MEDS ORDERED: HEPARIN 1,000unit/ml INJECTION 10ml IVP ONE (05:15)
[2017-07-19] MEDS ORDERED: POTASSIUM CHLORIDE 20 MEQ/15 ML ORAL LIQUID NG ONE (05:20)
[2017-07-19] MEDS: INSULIN REGULAR, HUMAN 100 UNIT/ML INJECTION SQ PRN ×3 (06:37→21:02)
[2017-07-19] MEDS: ALBUTEROL/IPRATROPIUM 2.5mg-0.5mg/3ml NEB AEROSOL SCH ×4 (07:01→19:18)
[2017-07-19] MEDS: NS 1,000 ML IV SCH ×5 (07:45→23:14)
--- NOTE | 2017-07-19 08:26 | Echocardiogram ---
DATE 07/18/2017 INDICATION Elevated troponin, aortic stenosis murmur, respiratory failure. TECHNICAL QUALITY Technically good 2-D, M-mode, Doppler echocardiographic images were submitted for interpretation. FINDINGS 1. CARDIAC CHAMBERS. All cardiac chamber measurements are normal except for left ventricle dilated at 6.1 cm. Left atrial size with a diameter of 3.5 cm falls within upper-normal range. Visually, left atrial size appears normal. RV size and contractility appear normal. 2. LEFT VENTRICLE. Wall thickness is 10 mm. Wall motion analysis is normal. LV systolic function appears normal. Ejection fraction is estimated about 60-65 %. Diastolic dysfunction, grade I/IV, is present. 3. VALVES. Aortic valve exhibits annular calcification. Leaflets exhibit moderate sclerosis and mild to moderate calcification seen at the tips of the leaflets. Valve opening appears to be moderately restricted. Mitral valve exhibits moderate to heavy calcification, especially involving the anterior leaflet. Valve opening is restricted to a moderate degree. Posterior leaflet is sclerotic and calcified and appears near fixed. Mitral valve planimetry was not performed. Aortic valve planimetry measured 1.35 cm2. The subvalvular mitral apparatus exhibits thickened chordae with calcification such as seen with rheumatic disease. Tricuspid valve structure and motion appeared normal. Normal valve excursion. 4. DOPPLER. Aortic stenosis study shows a peak flow velocity of 2.9 m/sec. Maximum and mean pressure gradient measure 33 and 18 mmHg, LVOT diameter of 2 cm and a peak LVOT velocity of 1.3 m/sec, calculated aortic valve area of 1.47 cm2 consistent with mild to moderate aortic stenosis. Mitral stenosis study shows a peak and mean pressure gradient of 20 and 8 mmHg with underlying sinus rhythm and heart rate in the 70s to 80s. Pressure halftime remained normal with the mitral valve area calculated at 1.95 cm2. Trace mitral regurgitation and trace tricuspid regurgitation are noted. Systolic PA pressure is estimated at 30 mmHg. IVC is dilated, a nonspecific finding in setting of positive pressure ventilation (mechanical ventilation). 5. No evidence of pericardial effusion, intracardiac masses, thrombi, vegetations or shunts. IMPRESSION 1. LV enlargement. 2. Other cardiac chambers are normal in size. 3. Normal LV systolic function without significant regional wall motion abnormality. EF is estimated about 60%. 4. Mild diastolic dysfunction. 5. Calcific aortic valve stenosis up to moderate. 6. Calcific mitral valve with up to moderate mitral stenosis (based on a mean pressure gradient of 8 mmHg). 7. Normal systolic PA pressure estimated at 30 mmHg. MTDD
--- NOTE | 2017-07-19 08:36 | Pharmacy Consult ---
Pharmacy Consult-Heparin - Laboratory Information Heparin Plt Count 184 T/MM3 (130-400) 07/19/17 03:55 APTT 41.2 SEC (24-36) H 07/19/17 03:55 - Consult Information HEPARIN CONSULT (Initial): Dx: INCREASED TROPONIN. PTT = 41.2 Sec. platelet count = 184 T/mm3. PTT Target Range = 50 - 75 Will give Heparin Bolus of 2,000units, continue Heparin Drip at 1,160 units/hr ( 29ml/hr). Heparin 20,000 units in D5W 500ml. We will continue to monitor and make adjustments accordingly. Thank you.
[2017-07-19] MEDS ORDERED: ASPIRIN 325 MG TABLET NG SCH (09:00)
[2017-07-19] MEDS ORDERED: CLOPIDOGREL 75 MG TABLET NG SCH (09:00)
[2017-07-19] MEDS: CLOPIDOGREL 75 MG TABLET NG SCH (09:19)
[2017-07-19] MEDS: INSULIN DETEMIR 100unit/ml INJECTION SQ SCH (09:21)
--- NOTE | 2017-07-19 11:56 | CT Scan Report ---
Indication: L lung collapse PROCEDURE: CT chest wo con: Encounter: Initial Comparison: None. Technique: Helical imaging was performed through the chest without IV contrast. 3-dimensional volume rendered reconstructions were performed on the helically acquired data. Findings: There is nonspecific symmetric atelectasis in the inferior medial aspect of both lung bases. No definite pleural effusion. There is an ET tube in place with its tip just above the level of the lisseth by about 2 cm. There is an NG tube in place with its tip at least to the body of the stomach. The great vessels arise from the aorta and a normal manner. Heart size is normal. There are extensive coronary artery calcifications. The included portions of the upper abdominal structures are unremarkable. 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 There is collapse of the T12 vertebral body which appears remote. No definite acute compression fracture. Impression: Fairly symmetric nonspecific bibasilar dependent atelectasis without evidence for ocular occlusion or lobar consolidation. Plain film follow-up to resolution is probably sufficient. .
--- NOTE | 2017-07-19 13:59 | Pharmacy Consult ---
Pharmacy Consult-Heparin - Laboratory Information Heparin Plt Count 184 T/MM3 (130-400) 07/19/17 03:55 APTT 66.0 SEC (24-36) H 07/19/17 13:15 - Consult Information HEPARIN CONSULT (Recurring): PTT = 66 Sec. Will continue Heparin Drip at 1160 units/hr (29 ml/hr). Will recheck PTT and adjust regimen as needed. Thank you.
--- NOTE | 2017-07-19 14:06 | Progress Note ---
- Date 07/19/17 Subjective: Seen in the ICU: Patient initially ventilated with FI 02 40% and propofol drip at maximum. Nursing reports that she was still irritable despite this with significant blood pressure swings. Objective Vital signs: Temperature 98.3 F 07/19/17 04:00 Pulse Rate 55 L 07/19/17 10:44 Respiratory Rate 12 07/19/17 10:48 Blood Pressure 148/65 H 07/19/17 07:00 Pulse Oximetry 98 07/19/17 10:48 Rhythm: Normal Sinus Rhythm Cardiac Ectopy: Rare PVC's Height/Weight/BMI: Height 5 ft 1 in Weight 81.1 kg Body Mass Index 33.7 - Constitutional Comments: Intubated and sedated - Routine HEENT Exam Head: Present: normocephalic, atraumatic ENT: Present: mucous membranes moist, dentition normal - Routine Respiratory Exam Present: patient mechanically ventilated, rhonchi. Absent: wheezes - Routine Cardiovascular Exam Present: RRR, S1, S2, murmur - Routine Abdominal Exam Present: soft, normoactive bowel sounds, non distended. Absent: tenderness - Routine Extremities Exam Present: normal capillary refill - Routine Skin Exam Present: dry, warm - Routine Neurological Exam Absent: alert, oriented X3 - Routine Lymphatic Exam Lymphatic: Absent: adenopathy - Routine Psychiatric Exam Present: unable to assess Results - Labs CBC & Chem 7: 07/19/17 03:55 07/19/17 03:55 - ABG Interpretation Attestation: I reviewed and interpreted this ABG. ABG results: 07/18/17 06:50 VBG pH 7.370 VBG pCO2 51 VBG pO2 58 H VBG HCO3 30 H VBG Total CO2 31.1 VBG O2 Saturation 89.0 VBG Base Excess 3.3 H Interpretation: respiratory acidosis Assessment and Plan (1) Acute respiratory failure with hypoxia and hypercapnia Current visit: Yes Status: Acute (2) CAP (community acquired pneumonia) Current visit: Yes Status: Acute (3) Nonketotic hyperglycinemia Current visit: Yes Status: Acute (4) Metabolic encephalopathy Current visit: Yes Status: Acute (5) Diabetes mellitus type 2, uncontrolled, without complications Problem details: Variable control. Will need to check A1c. Current visit: No Status: Chronic (6) Hypertension Problem details: High today. Current visit: No Status: Chronic (7) Obesity (BMI 30-39.9) Current visit: No Status: Chronic Assessment and Plan: 07/19/2017 seen in the ICU and patient was intubated with adequate O2 saturation at 40% FIO2. Patient examined in chart review performed. Labs reviewed and decision- making for further critical care performed. Coordination with nursing and respiratory therapy to perform a trial weaning was had been arranged. Patient however despite maximum propofol was able to wriggle free of restraints reach up and self extubate. She has then been weaned down to a non-rebreather 6 L and has been holding her saturations. Case discussed with Dr. Singh. Appreciation for his input. For the pneumonia/acute respiratory failure, continue broad-spectrum antibiotics and breathing treatments. For the HHS, continue aggressive fluid resuscitation at 200 ML per hour as patient is still complaining of being dry. Patient is also vomiting and this is questionably due to opiate withdrawal as she is negative for any opiates despite family stating her as being on 25 g fentanyl and oxygen IR on a regular basis. Diagnoses: Acute respiratory failure with hypercapnea and hypoxia-- continue antibiotics Nonketotic hyperosmolar syndrome with associated metabolic encephalopathy type I diabetes medical noncompliance hazardous to health history of opiate dependence although negative on urine drug toxicity concern of diversion of controlled substances vomiting COPD Class 1 obesity BMI 33 Essential HTN, Dyslipidemia Critical care time today 35 minutes without procedures. 07/18/2017 Addendum: HPI: Mrs. Sutherland remains intubated and unresponsive on propofol drip in critical condition. Further history from the family indicates that she has been on chronic narcotics including the 25 g fentanyl patch and oxy IR. It is unknown why she tested negative for opiates on her urine drug screen. The family INSISTS that she is terribly allergic to acetaminophen aspirin and all nonsteroidal anti-inflammatory's. ROS, medical history, surgical history, social history, family history: have read and agree with Dr. Zhu's assessment Physical exam: patient remains critically ill intubated and irritable but not coherently responsive. Blood pressures have swung wildly auscultation of chest remains coarse patient remains in restraints with ET and OG tube Lab work in imaging: agree with above but have concerns that patient's entire left lung appears occluded. This raises question of aspiration and I've ordered a CT of the chest Assessment and plan: agree with the diagnoses listed above by Dr. Zhu with following modifications: aspiration complete apace the of the left lung is concerning for aspiration and have ordered a chest CT Will discuss with Dr. Matson in pulmonary tomorrow to see if bronchoscopy and pulmonary toilet is required elevated troponin: started patient on therapeutic Lovenox but family has declined aspirin. Patient has significant risk factors for coronary artery disease but this may be a type to non-ST elevated [place]. I have discussed the case with Dr. Singh. My appreciation for his input already history of opiate dependence: concerning that there is diversion within the family. No unwitnessed opiate medications to be given DISPOSITION: 45 minutes critical care time without procedures performed thus far - Physician Narrative Narrative: Date: 07/19/17 Time: 1403 Hospital Course Summary Disclaimer: The visit summary below is not to be considered part of the above Progress Note.
[2017-07-19] MEDS ORDERED: PROMETHAZINE 25 MG INJECTION IM PRN (15:14)
[2017-07-19] MEDS: HEPARIN DRIP 20,000 UNIT/500 ML BAG IV SCH ×2 (15:39→21:17)
[2017-07-19] MEDS: PROMETHAZINE 25 MG INJECTION IVP PRN (17:42)
[2017-07-19] MEDS: MORPHINE SULFATE 10mg/0.5ml ORAL LIQ PO PRN (18:53)
--- NOTE | 2017-07-19 19:18 | Cardiology Progress Note ---
Subjective Interval history: Patient seen around 11 AM. She just self extubated and little bit ago and that she is on 6 L nasal cannula. She complains of feeling dry and thirsty she has been getting IV fluids at 100 cc an hour. She's been having dry heaves feeling quite nauseated getting ready to receive Zofran by [employer] TECHNICIAN. No complaints of angina or dyspnea. She has not been out of bed. She is still quite weak and when I tried to sit her up to listen to her lungs, she couldn't support herself. Lab results reviewed and telemetry. Potassium been submitted by primary service. Normal sinus rhythm rare PVCs. EKG with inferolateral T-wave inversion without ST depression or elevation. Chest CT scan showed the left lung clear that almost completely, this course again in comparison with a chest x-ray done just 12 hours prior may be consistent with mucous plugging. Patient is receiving. Bronchodilators IV antibiotics and IV hydration per primary service. Patient now able to provide some history although she still lethargic. I am Not getting any history of chronic anginal type pain or dyspnea on exertion. Exam Vital signs: Temperature 97.1 F 07/19/17 16:00 Pulse Rate 78 07/19/17 16:00 Respiratory Rate 26 H 07/19/17 16:00 Blood Pressure 205/81 H 07/19/17 16:00 Pulse Oximetry 96 07/19/17 16:00 - Constitutional no acute distress, obese, cooperative, somnolent (but easily arousable and answers questions. She is also asking questions) - Routine HEENT Exam Head: Present: normocephalic, atraumatic Eye: Present: EOMI, PERRL ENT: Present: mucous membranes dry - Routine Neck Exam Present: normal carotid upstroke. Absent: JVD, carotid bruit, lymphadenopathy, thyromegaly - Routine Respiratory Exam Present: CTA bilaterally (generally clear bilaterally) - Routine Cardiovascular Exam Present: RRR, murmur ( murmur 3/6) - Routine Abdominal Exam Present: soft, normoactive bowel sounds, non distended, non tender. Absent: organomegaly, mass - Routine Extremities Exam Present: no edema, normal capillary refill. Absent: cyanosis, clubbing, pulses intact (mildly decreased pedal pulses on the right, still palpable and no acute ischemic changes. Right foot slightly cooler than the left) - Routine Skin Exam Present: intact, dry, warm (except as above). Absent: cyanosis, erythema - Routine Neurological Exam Present: CN II-XII intact, moving all extremities, vision grossly intact, hearing grossly intact, normal speech. Absent: motor deficit, hemineglect, facial asymmetry - Routine Psychiatric Exam Present: normal affect, cooperative. Absent: normal thought process - Urinary Catheter Management Urethral Cath placed during this visit: yes Insertion date: 07/18/17 Insertion time: : Results 07/19/17 03:55 07/19/17 03:55 Cardiac Enzymes 07/18/17 Range/Units 19:45 Troponin I 1.520 H (0-0.12) ng/ml Coagulation 07/19/17 07/19/17 Range/Units 03:55 13:15 APTT 41.2 H 66.0 H (24-36) SEC CBC 07/18/17 07/19/17 Range/Units 19:45 03:55 WBC 10.5 7.5 (4.5-11.0) T/MM3 RBC 4.21 3.94 L (4.00-5.20) M/MM3 Hgb 12.8 12.0 (12-16) GM/DL Hct 38.7 36.4 (36-46) % Plt Count 223 184 (130-400) T/MM3 Neut # (Auto) 4.2 (1.8-7.7) T/MM3 Lymph # (Auto) 2.6 (1-4.8) T/MM3 [place] # (Auto) 0.5 (0-0.8) T/MM3 Eos # (Auto) 0.1 (0-0.5) T/MM3 Baso # (Auto) 0.0 (0-0.2) T/MM3 Comprehensive Metabolic Panel 07/19/17 Range/Units 03:55 Sodium 145 H D (134-144) MEQ/L Potassium 2.8 L* D (3.6-5) MEQ/L Chloride 110 H D (98-107) MEQ/L Carbon Dioxide 26 (22-30) MEQ/L BUN 24.0 H (7-17) MG/DL Creatinine 0.8 (0.7-1.2) MG/DL Glucose 229 H (65-110) MG/DL Calcium 7.8 L D (8.4-10.2) MG/DL Intake and Output 07/19/17 07/19/17 07/19/17 06:59 14:59 22:59 Intake Total 1751.272 / 0627.780 5997.818 / 1567.818 293.251 / 293.251 Output Total 1003 / 1003 214 / 214 810 / 810 Balance 748.272 / 677.581 7859.818 / 1353.818 -516.749 / -516.749 Intake: IV 1751.272 / 4038.762 3934.818 / 1567.818 293.251 / 293.251 Aztreonam 1 g In Ns 100 ml @ 116.667 / 116.667 183.333 / 183.333 100 mls/hr IV Q6H SREEKANTH Rx#: [id number] Heparin Drip 20,000 unit In 500 202.666 / 202.666 232 / 232 43.251 / 43.251 ml @ 1,160 UNIT/HR 29 mls/hr IV .[id number] SREEKANTH Rx#:[id number] Ns 1,000 ml @ 200 mls/hr IV . 1000.000 / 8303.790 2256 / 1000 Q5H SREEKANTH Rx#:[id number] Propofol 1,000 mg In 100 ml @ 5 181.939 / 181.939 152.485 / 152.485 MCG/KG/MIN 2.574 mls/hr IV . Q24H PRN Rx#:[id number] Vancomycin 1,000 mg In NS 250ml 250 / 250 250 / 250 250 ml @ 250 mls/hr IV Q12H SREEKANTH Rx#:[id number] Output: Emesis 100 / 100 Urine Amount (Catheter) 803 / 803 114 / 114 810 / 810 Gastric Drainage 200 / 200 Oral 200 / 200 Other: Urine Appearance Clear Clear Clear Urine Color Yellow Yellow Yellow Emesis Description Clear Weight 81.1 kg Patient Weight 07/20/17 06:59 Weight 81.1 kg - EKG Interpretation EKG: sinus rhythm Assessment and Plan - Assessment and Plan Elevated troponin , without ST depression or elevation, differential diagnosis includes type II LA versus non-STEMI and a candidate only for medical therapy at present time due to acute comorbidities especially acute respiratory failure. Continue Plavix statin and beta blockers. Continue supportive measures. Plan a pharmacological stress nuclear scan prior to discharge. Needs some general strengthening increasing activity gradually. Appears stable from a cardiac standpoint no change in medications Continue IV heparin for another 24-48 hours And may be switched to low-dose Lovenox Aortic stenosis moderate and moderate mitral stenosis, warrants further observation only. Acute respiratory failure improving Darren out left hemithorax improved dramatically on chest CT scan, one wonders about mucous plugging associated with the dehydration and underlying pneumonia, management per primary service. Uncontrolled diabetes mellitus, chronic, hemoglobin A1c over 13/diabetic coma Agree with IV hydration Hypertension with labile blood pressure, improved Dyslipidemia on statin Hospital Course Summary Disclaimer: The visit summary below is not to be considered part of the above Progress Note.
[2017-07-19] MEDS: SALINE FLUSH 10ml SYRINGE IVF PRN (20:14)
[2017-07-19] MEDS: ATORVASTATIN 40 MG TABLET NG SCH (21:02)
[2017-07-19] MEDS ORDERED: HYDRALAZINE 20 MG/ML INJECTION IVP PRN (22:11)
[2017-07-19] MEDS ORDERED: VITAMIN E 1,000 UNIT CAPSULE PO ONE (23:11)
[2017-07-19] MEDS ORDERED: COENZYME Q-10 200mg TABLET PO ONE (23:11)
[2017-07-20] MEDS: MORPHINE SULFATE 10mg/0.5ml ORAL LIQ PO PRN (02:18)
[2017-07-20] MEDS: ALBUTEROL/IPRATROPIUM 2.5mg-0.5mg/3ml NEB AEROSOL SCH ×4 (06:32→22:00)
[2017-07-20] MEDS: AZTREONAM 1 G in NS 100 ML IV SCH ×4 (06:44→23:46)
[2017-07-20] MEDS: NS 1,000 ML IV SCH ×4 (06:44→19:29)
[2017-07-20] MEDS: HEPARIN DRIP 20,000 UNIT/500 ML BAG IV SCH ×2 (07:44→15:42)
[2017-07-20] MEDS: INSULIN DETEMIR 100unit/ml INJECTION SQ SCH (09:49)
[2017-07-20] MEDS: CLOPIDOGREL 75 MG TABLET NG SCH (09:49)
[2017-07-20] MEDS: INSULIN REGULAR, HUMAN 100 UNIT/ML INJECTION SQ PRN ×2 (10:02→14:36)
--- NOTE | 2017-07-20 10:41 | Pharmacy Consult-Antibiotics ---
Pharmacy Consult-Vancomycin - Laboratory Information WBC 6.3 T/MM3 (4.5-11.0) 07/20/17 04:48 BUN 14.0 MG/DL (7-17) 07/20/17 04:48 Creatinine 0.6 MG/DL (0.7-1.2) L D 07/20/17 04:48 Procalcitonin < 0.05 NG/ML 07/18/17 01:56 Vancomycin Trough 17.44 UG/ML (15-20) 07/19/17 13:15 VANCOMYCIN THERAPY: DAY 3 Renal fx remains stable: Vancomycin Trough with target range of 15-20mcg/ml Will continue present regimen of VANCOMYCIN 1gm IV q12hrs. Thank you
[2017-07-20] MEDS: MENTHOLATUM TOP PRN ×2 (10:54→13:44)
--- NOTE | 2017-07-20 11:02 | Progress Note ---
- Date 07/20/17 Subjective: Seen in ICU: Respiratory function remaining stable. No fever. He does complain of pain in her right [place] as well as headache, nausea and sinus congestion Objective Vital signs: Temperature 97.1 F 07/19/17 16:00 Pulse Rate 86 07/20/17 08:00 Respiratory Rate 17 07/20/17 06:38 Blood Pressure 139/62 07/20/17 04:31 Pulse Oximetry 99 07/20/17 06:38 Rhythm: Normal Sinus Rhythm Cardiac Ectopy: Rare PVC's Height/Weight/BMI: Height 5 ft 1 in Weight 81.1 kg Body Mass Index 33.7 - Constitutional Present: no acute distress, obese, disheveled - Routine HEENT Exam Head: Present: normocephalic, atraumatic Eye: Present: EOMI ENT: Present: mucous membranes moist, dentition normal - Routine Respiratory Exam Present: CTA bilaterally. Absent: wheezes - Routine Cardiovascular Exam Present: RRR. Absent: murmur - Routine Abdominal Exam Present: soft, normoactive bowel sounds, non distended. Absent: tenderness - Routine Extremities Exam Present: normal capillary refill - Routine Skin Exam Present: dry, warm, wounds Comments: Right pre-tibial skin avulsion is bandaged try and clean - Routine Neurological Exam Present: alert, oriented X3, CN II-XII intact - Routine Lymphatic Exam Lymphatic: Absent: adenopathy - Routine Psychiatric Exam Absent: normal thought process, good insight, good judgment Results - Labs CBC & Chem 7: 07/20/17 04:48 07/22/17 05:58 Assessment and Plan (1) Acute respiratory failure with hypoxia and hypercapnia Current visit: Yes Status: Acute (2) CAP (community acquired pneumonia) Current visit: Yes Status: Acute (3) Diabetes mellitus type 2, uncontrolled, without complications Problem details: Variable control. Will need to check A1c. Current visit: No Status: Chronic (4) Hypertension Problem details: High today. Current visit: No Status: Chronic (5) Obesity (BMI 30-39.9) Current visit: No Status: Chronic (6) Nonketotic hyperglycinemia Current visit: Yes Status: Resolved (7) Metabolic encephalopathy Current visit: Yes Status: Resolved Assessment and Plan: Active Diagnoses: aspiration pneumonia type I diabetes medical noncompliance hazardous to health history of opiate dependence although negative on urine drug toxicity concern of diversion of controlled substances vomiting COPD Class 1 obesity BMI 33 Essential HTN, Dyslipidemia resolved diagnoses: Acute respiratory failure with hypercapnea and hypoxia-- continue antibiotics Nonketotic hyperosmolar syndrome with associated metabolic encephalopathy Patient has recovering from the acute respiratory failure. But will require antibiotics to complete course of pneumonia treatment. Hyperosmolar nonketotic syndrome and metabolic encephalopathy also resolved. Patient continues to request high-level opiates to treat complaints certainly unwarranted the levels of pain that she rests with comfortably.. I have again asked about her "allergies"to aspirin Tylenol and all NSAIDs and find that her blanket statement of rash and swelling is not forthright. Continue breathing treatments. Continue blood pressure control. Patient has not mobilized significantly from the bed and will need physical therapy at this point. This is a shift in focus of care at this time this patient will require to ambulate manage self-care before discharging home Moving patient out of the ICU to regular medical floor. DVT Prophylaxis: Lovenox - Physician Narrative Narrative: Date: 07/20/17 Time: 1101 Hospital Course Summary Disclaimer: The visit summary below is not to be considered part of the above Progress Note. Hospital Course: 07/19/2017 seen in the ICU and patient was intubated with adequate O2 saturation at 40% FIO2. Patient examined in chart review performed. Labs reviewed and decision- making for further critical care performed. Coordination with nursing and respiratory therapy to perform a trial weaning was had been arranged. Patient however despite maximum propofol was able to wriggle free of restraints reach up and self extubate. She has then been weaned down to a non-rebreather 6 L and has been holding her saturations. Case discussed with Dr. Singh. Appreciation for his input. For the pneumonia/acute respiratory failure, continue broad-spectrum antibiotics and breathing treatments. For the HHS, continue aggressive fluid resuscitation at 200 ML per hour as patient is still complaining of being dry. Patient is also vomiting and this is questionably due to opiate withdrawal as she is negative for any opiates despite family stating her as being on 25 g fentanyl and oxygen IR on a regular basis. Diagnoses: Acute respiratory failure with hypercapnea and hypoxia-- continue antibiotics Nonketotic hyperosmolar syndrome with associated metabolic encephalopathy type I diabetes medical noncompliance hazardous to health history of opiate dependence although negative on urine drug toxicity concern of diversion of controlled substances vomiting COPD Class 1 obesity BMI 33 Essential HTN, Dyslipidemia Critical care time today 35 minutes without procedures. 07/18/2017 Addendum: HPI: Mrs. Sutherland remains intubated and unresponsive on propofol drip in critical condition. Further history from the family indicates that she has been on chronic narcotics including the 25 g fentanyl patch and oxy IR. It is unknown why she tested negative for opiates on her urine drug screen. The family INSISTS that she is terribly allergic to acetaminophen aspirin and all nonsteroidal anti-inflammatory's. ROS, medical history, surgical history, social history, family history: have read and agree with Dr. Zhu's assessment Physical exam: patient remains critically ill intubated and irritable but not coherently responsive. Blood pressures have swung wildly auscultation of chest remains coarse patient remains in restraints with ET and OG tube Lab work in imaging: agree with above but have concerns that patient's entire left lung appears occluded. This raises question of aspiration and I've ordered a CT of the chest Assessment and plan: agree with the diagnoses listed above by Dr. Zhu with following modifications: aspiration complete apace the of the left lung is concerning for aspiration and have ordered a chest CT Will discuss with Dr. Matson in pulmonary tomorrow to see if bronchoscopy and pulmonary toilet is required elevated troponin: started patient on therapeutic Lovenox but family has declined aspirin. Patient has significant risk factors for coronary artery disease but this may be a type to non-ST elevated [place]. I have discussed the case with Dr. Singh. My appreciation for his input already history of opiate dependence: concerning that there is diversion within the family. No unwitnessed opiate medications to be given DISPOSITION: 45 minutes critical care time without procedures performed thus far
[2017-07-20] MEDS: ENOXAPARIN 40 MG/0.4 ML INJECTION SQ SCH (22:28)
[2017-07-20] MEDS: ATORVASTATIN 40 MG TABLET NG SCH (22:29)
--- NOTE | 2017-07-21 00:40 | Cardiology Progress Note ---
Subjective Interval history: Patient seen around 3 PM 07/20/2017 Patient denies chest pain or dyspnea. She was vomiting yesterday. She hasn't been up. [place] catheter in place. Remains generally weak. Weaned off oxygen completely. Vital signs SULEMA telemetry weight laboratory available x-rays and med list are reviewed in detail Exam Vital signs: Temperature 99.4 F 07/21/17 00:00 Pulse Rate 82 07/21/17 00:00 Respiratory Rate 18 07/21/17 00:00 Blood Pressure 145/65 H 07/21/17 00:00 Pulse Oximetry 95 07/21/17 00:00 - Constitutional no acute distress - Routine HEENT Exam Head: Present: normocephalic, atraumatic Eye: Present: EOMI, PERRL ENT: Present: mucous membranes moist - Routine Neck Exam Present: normal carotid upstroke. Absent: JVD, lymphadenopathy, thyromegaly - Routine Respiratory Exam Present: CTA bilaterally (mostly clear) - Routine Cardiovascular Exam Present: RRR, murmur (3/6 AST murmur radiates to the neck) - Routine Abdominal Exam Present: soft, normoactive bowel sounds, non distended, non tender - Routine Extremities Exam Present: no edema, pulses intact, normal capillary refill. Absent: cyanosis, clubbing, extremity cold to touch (warm feet bilaterally) - Routine Skin Exam Present: intact, dry. Absent: cyanosis - Routine Neurological Exam Present: alert, CN II-XII intact, moving all extremities, vision grossly intact , hearing grossly intact, normal speech. Absent: motor deficit, hemineglect, facial asymmetry - Routine Psychiatric Exam Present: normal affect, cooperative. Absent: normal thought process (confused) - Urinary Catheter Management Urethral Cath placed during this visit: yes Insertion date: 07/18/17 Insertion time: 01:18 Results 07/20/17 04:48 07/20/17 04:48 Coagulation 07/20/17 Range/Units 04:48 APTT 54.0 H (24-36) SEC CBC 07/20/17 Range/Units 04:48 WBC 6.3 (4.5-11.0) T/MM3 RBC 3.62 L (4.00-5.20) M/MM3 Hgb 11.0 L (12-16) GM/DL Hct 34.3 L (36-46) % Plt Count 174 (130-400) T/MM3 Neut # (Auto) 3.0 (1.8-7.7) T/MM3 Lymph # (Auto) 2.6 (1-4.8) T/MM3 [place] # (Auto) 0.4 (0-0.8) T/MM3 Eos # (Auto) 0.3 (0-0.5) T/MM3 Baso # (Auto) 0.0 (0-0.2) T/MM3 Comprehensive Metabolic Panel 07/20/17 Range/Units 04:48 Sodium 140 (134-144) MEQ/L Potassium 2.7 L* (3.6-5) MEQ/L Chloride 114 H (98-107) MEQ/L Carbon Dioxide 23 (22-30) MEQ/L BUN 14.0 (7-17) MG/DL Creatinine 0.6 L D (0.7-1.2) MG/DL Glucose 122 H (65-110) MG/DL Calcium 6.4 L D (8.4-10.2) MG/DL Intake and Output 07/20/17 07/20/17 07/21/17 14:59 22:59 06:59 Intake Total 2679.666 / 2679.666 1719.266 / 1719.266 Output Total 445 / 445 1300 / 1300 Balance 2234.666 / 2234.666 419.266 / 419.266 Intake: IV 739.666 / 985.910 2693.266 / 1599.266 Aztreonam 1 g In Ns 100 ml @ 200 / 200 100 / 100 100 mls/hr IV Q6H [facility] Rx#: [id number] Heparin Drip 20,000 unit In 500 93 / 93 245.933 / 245.933 ml @ 31 mls/hr IV .[id number] [facility] Rx#:[id number] Ns 1,000 ml @ 200 mls/hr IV . 446.666 / 719.934 4578.333 / 1003.333 Q5H [facility] Rx#:[id number] Vancomycin 1,000 mg In NS 250ml 250 / 250 250 ml @ 250 mls/hr IV Q12H [facility] Rx#:[id number] Oral 1940 / 1940 120 / 120 Output: Urine Amount (Catheter) 445 / 445 1300 / 1300 Other: Urine Appearance Clear Clear Urine Color Yellow Yellow Weight 87.7 kg Patient Weight 07/21/17 06:59 Weight 87.7 kg - Imaging and Cardiology EKG results: image reviewed - EKG Interpretation EKG: sinus rhythm, no acute changes Assessment and Plan - Attestation Attestation Narrative: 07/21/17 00:43 Elevated troponin Aspiration pneumonia with mucous plug left lung resolved. Acute respiratory failure resolved Diabetes mellitus with chronically and severely uncontrolled hyperglycemia Valvular heart disease /Up to moderate aortic stenosis and moderate mitral stenosis Hypertension Dyslipidemia Will proceed with pharmacological stress nuclear scan tomorrow 07/21/2017 Discussed with hospitalist switched to low-dose Lovenox 40 mg subcutaneous daily and stop IV heparin at this point Remains weak, need to gradually increase her activity with strengthening. May Benefit from gentle physical therapy Hospital Course Summary Disclaimer: The visit summary below is not to be considered part of the above Progress Note. Hospital Course: 07/19/2017 seen in the ICU and patient was intubated with adequate O2 saturation at 40% FIO2. Patient examined in chart review performed. Labs reviewed and decision- making for further critical care performed. Coordination with nursing and respiratory therapy to perform a trial weaning was had been arranged. Patient however despite maximum propofol was able to wriggle free of restraints reach up and self extubate. She has then been weaned down to a non-rebreather 6 L and has been holding her saturations. Case discussed with Dr. Singh. Appreciation for his input. For the pneumonia/acute respiratory failure, continue broad-spectrum antibiotics and breathing treatments. For the HHS, continue aggressive fluid resuscitation at 200 ML per hour as patient is still complaining of being dry. Patient is also vomiting and this is questionably due to opiate withdrawal as she is negative for any opiates despite family stating her as being on 25 g fentanyl and oxygen IR on a regular basis. Diagnoses: Acute respiratory failure with hypercapnea and hypoxia-- continue antibiotics Nonketotic hyperosmolar syndrome with associated metabolic encephalopathy type I diabetes medical noncompliance hazardous to health history of opiate dependence although negative on urine drug toxicity concern of diversion of controlled substances vomiting COPD Class 1 obesity BMI 33 Essential HTN, Dyslipidemia Critical care time today 35 minutes without procedures. 07/18/2017 Addendum: HPI: Mrs. Sutherland remains intubated and unresponsive on propofol drip in critical condition. Further history from the family indicates that she has been on chronic narcotics including the 25 g fentanyl patch and oxy IR. It is unknown why she tested negative for opiates on her urine drug screen. The family INSISTS that she is terribly allergic to acetaminophen aspirin and all nonsteroidal anti-inflammatory's. ROS, medical history, surgical history, social history, family history: have read and agree with Dr. Zhu's assessment Physical exam: patient remains critically ill intubated and irritable but not coherently responsive. Blood pressures have swung wildly auscultation of chest remains coarse patient remains in restraints with ET and OG tube Lab work in imaging: agree with above but have concerns that patient's entire left lung appears occluded. This raises question of aspiration and I've ordered a CT of the chest Assessment and plan: agree with the diagnoses listed above by Dr. Zhu with following modifications: aspiration complete apace the of the left lung is concerning for aspiration and have ordered a chest CT Will discuss with Dr. Matson in pulmonary tomorrow to see if bronchoscopy and pulmonary toilet is required elevated troponin: started patient on therapeutic Lovenox but family has declined aspirin. Patient has significant risk factors for coronary artery disease but this may be a type to non-ST elevated [place]. I have discussed the case with Dr. Singh. My appreciation for his input already history of opiate dependence: concerning that there is diversion within the family. No unwitnessed opiate medications to be given DISPOSITION: 45 minutes critical care time without procedures performed thus far
[2017-07-21] MEDS: NS 1,000 ML IV SCH ×4 (01:52→14:53)
[2017-07-21] MEDS: ALBUTEROL/IPRATROPIUM 2.5mg-0.5mg/3ml NEB AEROSOL SCH ×4 (06:20→19:21)
[2017-07-21] MEDS: AZTREONAM 1 G in NS 100 ML IV SCH ×2 (06:24→12:10)
[2017-07-21] MEDS: PROMETHAZINE 25 MG INJECTION IVP PRN (08:30)
[2017-07-21] MEDS: SALINE FLUSH 10ml SYRINGE IVF PRN ×2 (08:31→17:21)
[2017-07-21] MEDS ORDERED: REGADENOSON 0.4 MG/5 ML INJECTION IVP ONE (08:41)
[2017-07-21] MEDS ORDERED: SALINE FLUSH 10ml SYRINGE ONE ×2 (08:41→15:35)
[2017-07-21 09:27] VITALS: BMI 36.7
[2017-07-21] MEDS: ENOXAPARIN 40 MG/0.4 ML INJECTION SQ SCH (09:28)
[2017-07-21] MEDS: CLOPIDOGREL 75 MG TABLET NG SCH (09:28)
[2017-07-21] MEDS: INSULIN DETEMIR 100unit/ml INJECTION SQ SCH (09:36)
[2017-07-21] MEDS: INSULIN REGULAR, HUMAN 100 UNIT/ML INJECTION SQ PRN ×2 (17:19→21:22)
[2017-07-21] MEDS: NS IV SCH (17:20)
[2017-07-21] MEDS: AZTREONAM IV SCH (17:20)
--- NOTE | 2017-07-21 19:14 | Cardiology Progress Note ---
Subjective Interval history: Patient seen around 3 PM 07/21/2017 Patient denies chest pain or dyspnea. She's been up in the chair and walked some in the room she says. Weaned off oxygen completely. Vital signs SULEMA telemetry weight laboratory available x-rays and med list are reviewed in detail Normal sinus rhythm Exam Vital signs: Temperature 96.5 F L 07/21/17 16:00 Pulse Rate 88 07/21/17 16:00 Respiratory Rate 18 07/21/17 16:00 Blood Pressure 194/89 H 07/21/17 16:00 Pulse Oximetry 97 07/21/17 16:00 - Constitutional no acute distress - Routine HEENT Exam Head: Present: normocephalic, atraumatic Eye: Present: EOMI, PERRL ENT: Present: mucous membranes moist - Routine Neck Exam Present: normal carotid upstroke. Absent: JVD, carotid bruit, lymphadenopathy, thyromegaly - Routine Respiratory Exam Present: CTA bilaterally - Routine Cardiovascular Exam Present: RRR - Routine Abdominal Exam Present: soft, normoactive bowel sounds, non distended, non tender. Absent: organomegaly - Routine Extremities Exam Present: no edema, pulses intact, normal capillary refill. Absent: cyanosis, clubbing - Routine Skin Exam Present: intact, dry. Absent: cyanosis, erythema - Routine Neurological Exam Present: alert, oriented X3, CN II-XII intact, moving all extremities, vision grossly intact, hearing grossly intact, normal speech. Absent: motor deficit, hemineglect, facial asymmetry - Routine Psychiatric Exam Present: cooperative. Absent: good insight, depressed, anxious - Urinary Catheter Management Urethral Cath placed during this visit: yes, but has since been removed by the nurse Insertion date: 07/18/17 Insertion time: : Removal date: 07/21/17 Removal time: 11:30 Results 07/20/17 04:48 07/21/17 06:29 Comprehensive Metabolic Panel 07/21/17 Range/Units 06:29 Sodium 139 (134-144) MEQ/L Potassium 3.7 D (3.6-5) MEQ/L Chloride 110 H (98-107) MEQ/L Carbon Dioxide 25 (22-30) MEQ/L BUN 9.0 (7-17) MG/DL Creatinine 0.6 L (0.7-1.2) MG/DL Glucose 117 H (65-110) MG/DL Calcium 7.6 L D (8.4-10.2) MG/DL Intake and Output 07/21/17 07/21/17 07/21/17 06:59 14:59 22:59 Intake Total 3436.667 / 3436.667 1246.667 / 1246.667 500 / 500 Output Total 1875 / 1875 1999 / 1999 450 / 450 Balance 1561.667 / 1561.667 -753.333 / -753.333 50 / 50 Intake: IV 2256.667 / 2256.667 946.667 / 946.667 Aztreonam 1 g In Ns 100 ml @ 100 / 100 200 / 200 100 mls/hr IV Q6H [facility] Rx#: [id number] Ns 1,000 ml @ 200 mls/hr IV . 1906.667 / 1906.667 496.667 / 496.667 Q5H [facility] Rx#:[id number] Vancomycin 1,000 mg In NS 250ml 250 / 250 250 / 250 250 ml @ 250 mls/hr IV Q12H [facility] Rx#:[id number] Oral 1180 / 1180 300 / 300 500 / 500 Output: Urine 700 / 700 450 / 450 Urine Amount (Catheter) 1874 / 1875 1300 / 1300 Other: Urine Appearance Clear Clear Clear Urine Color Yellow Pale Normal for Patient Yellow Urine Odor Normal Normal Stool Color Brown Brown Brown Stool Consistency Soft Liquid Soft Size of Bowel Movement Large Small Moderate # Voids 1 1 # Bowel Movements 1 1 1 Weight 88.2 kg 86.636 kg Patient Weight 07/22/17 06:59 Weight 86.636 kg - EKG Interpretation EKG: sinus rhythm, no acute changes Assessment and Plan - Attestation Attestation Narrative: 07/21/17 19:14 Elevated troponin appears to be secondary to type II [place], given the absence of angina or wall motion abnormality and a normal myocardial perfusion scan today. Aspiration pneumonia with mucous plug left lung resolved. Acute respiratory failure resolved Diabetes mellitus with chronically and severely uncontrolled hyperglycemia Valvular heart disease /Up to moderate aortic stenosis and moderate mitral stenosis Hypertension Dyslipidemia pharmacological stress nuclear scan came back normal. No active cardiac issues. Agree with current medication. Return To See Me in One Month for Follow- Up on Elevated Troponin and a Future Surveillance of Valvular Heart Disease . Sign off . Return appointment to see me 08/17/2017 10:30 AM Hospital Course Summary Disclaimer: The visit summary below is not to be considered part of the above Progress Note. Hospital Course: 07/19/2017 seen in the ICU and patient was intubated with adequate O2 saturation at 40% FIO2. Patient examined in chart review performed. Labs reviewed and decision- making for further critical care performed. Coordination with nursing and respiratory therapy to perform a trial weaning was had been arranged. Patient however despite maximum propofol was able to wriggle free of restraints reach up and self extubate. She has then been weaned down to a non-rebreather 6 L and has been holding her saturations. Case discussed with Dr. Singh. Appreciation for his input. For the pneumonia/acute respiratory failure, continue broad-spectrum antibiotics and breathing treatments. For the HHS, continue aggressive fluid resuscitation at 200 ML per hour as patient is still complaining of being dry. Patient is also vomiting and this is questionably due to opiate withdrawal as she is negative for any opiates despite family stating her as being on 25 g fentanyl and oxygen IR on a regular basis. Diagnoses: Acute respiratory failure with hypercapnea and hypoxia-- continue antibiotics Nonketotic hyperosmolar syndrome with associated metabolic encephalopathy type I diabetes medical noncompliance hazardous to health history of opiate dependence although negative on urine drug toxicity concern of diversion of controlled substances vomiting COPD Class 1 obesity BMI 33 Essential HTN, Dyslipidemia Critical care time today 35 minutes without procedures. 07/18/2017 Addendum: HPI: Mrs. Sutherland remains intubated and unresponsive on propofol drip in critical condition. Further history from the family indicates that she has been on chronic narcotics including the 25 g fentanyl patch and oxy IR. It is unknown why she tested negative for opiates on her urine drug screen. The family INSISTS that she is terribly allergic to acetaminophen aspirin and all nonsteroidal anti-inflammatory's. ROS, medical history, surgical history, social history, family history: have read and agree with Dr. Zhu's assessment Physical exam: patient remains critically ill intubated and irritable but not coherently responsive. Blood pressures have swung wildly auscultation of chest remains coarse patient remains in restraints with ET and OG tube Lab work in imaging: agree with above but have concerns that patient's entire left lung appears occluded. This raises question of aspiration and I've ordered a CT of the chest Assessment and plan: agree with the diagnoses listed above by Dr. Zhu with following modifications: aspiration complete apace the of the left lung is concerning for aspiration and have ordered a chest CT Will discuss with Dr. Matson in pulmonary tomorrow to see if bronchoscopy and pulmonary toilet is required elevated troponin: started patient on therapeutic Lovenox but family has declined aspirin. Patient has significant risk factors for coronary artery disease but this may be a type to non-ST elevated [place]. I have discussed the case with Dr. Singh. My appreciation for his input already history of opiate dependence: concerning that there is diversion within the family. No unwitnessed opiate medications to be given DISPOSITION: 45 minutes critical care time without procedures performed thus far
--- NOTE | 2017-07-21 21:11 | Progress Note ---
- Date 07/21/17 Subjective: Patient is more alert and interactive. She complains of pain down her leg but functions with this adequately in the presence physical therapy. They report that she self limits but is otherwise functional. Objective Vital signs: Temperature 96.5 F L 07/21/17 16:00 Pulse Rate 88 07/21/17 16:00 Respiratory Rate 20 07/21/17 19:22 Blood Pressure 194/89 H 07/21/17 16:00 Pulse Oximetry 99 07/21/17 19:22 Rhythm: Normal Sinus Rhythm Cardiac Ectopy: Rare PVC's Height/Weight/BMI: Height 5 ft 1 in Weight 86.636 kg Body Mass Index 36.7 - Constitutional Present: well nourished, well developed, disheveled - Routine HEENT Exam Eye: Present: EOMI ENT: Present: mucous membranes moist, dentition normal - Routine Respiratory Exam Present: CTA bilaterally. Absent: wheezes - Routine Cardiovascular Exam Present: RRR. Absent: murmur - Routine Abdominal Exam Present: soft, normoactive bowel sounds, non distended. Absent: tenderness - Routine Extremities Exam Present: normal capillary refill - Routine Skin Exam Present: dry, warm - Routine Neurological Exam Present: alert, oriented X3, CN II-XII intact - Routine Lymphatic Exam Lymphatic: Absent: adenopathy - Routine Psychiatric Exam Present: normal affect. Absent: good insight, good judgment Results - Labs CBC & Chem 7: 07/20/17 04:48 07/21/17 06:29 Assessment and Plan (1) Acute respiratory failure with hypoxia and hypercapnia Current visit: Yes Status: Acute (2) CAP (community acquired pneumonia) Current visit: Yes Status: Acute (3) Diabetes mellitus type 2, uncontrolled, without complications Problem details: Variable control. Will need to check A1c. Current visit: No Status: Chronic (4) Hypertension Problem details: High today. Current visit: No Status: Chronic (5) Obesity (BMI 30-39.9) Current visit: No Status: Chronic (6) Nonketotic hyperglycinemia Current visit: Yes Status: Resolved (7) Metabolic encephalopathy Current visit: Yes Status: Resolved Assessment and Plan: Active Diagnoses: aspiration pneumonia type I diabetes medical noncompliance hazardous to health history of opiate dependence although negative on urine drug toxicity concern of diversion of controlled substances vomiting COPD Class 1 obesity BMI 33 Essential HTN, Dyslipidemia resolved diagnoses: Acute respiratory failure with hypercapnea and hypoxia-- continue antibiotics Nonketotic hyperosmolar syndrome with associated metabolic encephalopathy Patient has recovering from the acute respiratory failure and pneumonia treatment. Continue scheduled antibiotic treatment and respiratory treatments as needed Hyperosmolar nonketotic syndrome and metabolic encephalopathy also resolved. Lead pressure appears to be better controlled now that patient has recovered somewhat. No further vomiting. Have reviewed that the fentanyl patch still in place. She has worked adequately with physical therapy and they are recommending home health Dr. Singh has taken her to cardiology lab and reports that she has had a normal stress test, thus her elevated troponin was a symptom of a type to non- ST elevated RI secondary to her pulmonary failure. Anticipate discharge tomorrow - Physician Narrative Narrative: Date: 07/21/17 Time: 2105 Hospital Course Summary Disclaimer: The visit summary below is not to be considered part of the above Progress Note. Hospital Course: 07/20/2017 Patient has recovering from the acute respiratory failure. But will require antibiotics to complete course of pneumonia treatment. Hyperosmolar nonketotic syndrome and metabolic encephalopathy also resolved. Patient continues to request high-level opiates to treat complaints certainly unwarranted the levels of pain that she rests with comfortably.. I have again asked about her "allergies"to aspirin Tylenol and all NSAIDs and find that her blanket statement of rash and swelling is not forthright. Continue breathing treatments. Continue blood pressure control. Patient has not mobilized significantly from the bed and will need physical therapy at this point. This is a shift in focus of care at this time this patient will require to ambulate manage self-care before discharging home Moving patient out of the ICU to regular medical floor. 07/19/2017 seen in the ICU and patient was intubated with adequate O2 saturation at 40% FIO2. Patient examined in chart review performed. Labs reviewed and decision- making for further critical care performed. Coordination with nursing and respiratory therapy to perform a trial weaning was had been arranged. Patient however despite maximum propofol was able to wriggle free of restraints reach up and self extubate. She has then been weaned down to a non-rebreather 6 L and has been holding her saturations. Case discussed with Dr. Singh. Appreciation for his input. For the pneumonia/acute respiratory failure, continue broad-spectrum antibiotics and breathing treatments. For the HHS, continue aggressive fluid resuscitation at 200 ML per hour as patient is still complaining of being dry. Patient is also vomiting and this is questionably due to opiate withdrawal as she is negative for any opiates despite family stating her as being on 25 g fentanyl and oxygen IR on a regular basis. Diagnoses: Acute respiratory failure with hypercapnea and hypoxia-- continue antibiotics Nonketotic hyperosmolar syndrome with associated metabolic encephalopathy type I diabetes medical noncompliance hazardous to health history of opiate dependence although negative on urine drug toxicity concern of diversion of controlled substances vomiting COPD Class 1 obesity BMI 33 Essential HTN, Dyslipidemia Critical care time today 35 minutes without procedures. 07/18/2017 Addendum: HPI: Mrs. Sutherland remains intubated and unresponsive on propofol drip in critical condition. Further history from the family indicates that she has been on chronic narcotics including the 25 g fentanyl patch and oxy IR. It is unknown why she tested negative for opiates on her urine drug screen. The family INSISTS that she is terribly allergic to acetaminophen aspirin and all nonsteroidal anti-inflammatory's. ROS, medical history, surgical history, social history, family history: have read and agree with Dr. Zhu's assessment Physical exam: patient remains critically ill intubated and irritable but not coherently responsive. Blood pressures have swung wildly auscultation of chest remains coarse patient remains in restraints with ET and OG tube Lab work in imaging: agree with above but have concerns that patient's entire left lung appears occluded. This raises question of aspiration and I've ordered a CT of the chest Assessment and plan: agree with the diagnoses listed above by Dr. Zhu with following modifications: aspiration complete apace the of the left lung is concerning for aspiration and have ordered a chest CT Will discuss with Dr. Matson in pulmonary tomorrow to see if bronchoscopy and pulmonary toilet is required elevated troponin: started patient on therapeutic Lovenox but family has declined aspirin. Patient has significant risk factors for coronary artery disease but this may be a type to non-ST elevated [place]. I have discussed the case with Dr. Singh. My appreciation for his input already history of opiate dependence: concerning that there is diversion within the family. No unwitnessed opiate medications to be given DISPOSITION: 45 minutes critical care time without procedures performed thus far
[2017-07-21] MEDS: ATORVASTATIN 40 MG TABLET NG SCH (21:12)
[2017-07-22 00:07] VITALS: BP 154/68
[2017-07-22] MEDS ORDERED: Oxycodone *IR* 5 MG TABLET PO PRN (00:21)
[2017-07-22] MEDS ORDERED: FentaNYL 100 MCG/2 ML INJECTION IVP PRN (00:22)
[2017-07-22] MEDS: AZTREONAM IV SCH ×3 (05:38→14:40)
[2017-07-22] MEDS: NS IV SCH ×3 (05:38→14:40)
[2017-07-22 07:55] VITALS: TEMP 97.5
[2017-07-22] MEDS: ALBUTEROL/IPRATROPIUM 2.5mg-0.5mg/3ml NEB AEROSOL SCH ×2 (08:31→15:22)
[2017-07-22 08:32] VITALS: RESP 18; O2SAT 98
[2017-07-22] MEDS: ENOXAPARIN 40 MG/0.4 ML INJECTION SQ SCH (09:29)
[2017-07-22] MEDS: INSULIN DETEMIR 100unit/ml INJECTION SQ SCH (09:29)
[2017-07-22] MEDS: CLOPIDOGREL 75 MG TABLET NG SCH (09:29)
[2017-07-22 10:10] VITALS: PULSE 97
--- NOTE | 2017-07-22 10:34 | Discharge Summary ---
Discharge Information Date of admission: 07/18/17 03:15 Anticipated date of discharge: 07/22/17 Attending Physician: Louis Irvin MD Primary care physician: Geoffrey Oakley II, MD Consults: 07/18/17 18:45 Physician Consult [CONS] Routine Consulting Provider: Alexandro Singh Reason For Exam: troponin elevation Ordering Provider has Notified [employer]: Yes - Discharge Diagnosis (1) Acute respiratory failure with hypoxia and hypercapnia Status: Acute (2) CAP (community acquired pneumonia) Status: Acute (3) Diabetes mellitus type 2, uncontrolled, without complications Status: Chronic (4) Hypertension Status: Chronic (5) Obesity (BMI 30-39.9) Status: Chronic (6) Nonketotic hyperglycinemia Status: Resolved (7) Metabolic encephalopathy Status: Resolved - Laboratory Labs: 07/20/17 04:48 07/22/17 05:58 History of Present Illness HPI: patient seen with nursing assistance on 07/18/2017 via telemedicine Ms. Sutherland is a 72yo woman with h/o DM2 on insulin, class 1 obesity BMI 33, COPD, essential HTN, but no CAD or CVA hx. She was acutely more confused according to her daughter last night after 2100 needing to use the bathroom but not able to recognize it was empty. She did not seem to understand things and ultimately lost consciousness with EMS activated and her having a pulse the whole time, but losing respiratory drive and subsequently intubated in the ED after versed and succ. Please Dr. Davila's ED documentation. Patient has been busy caring for family members and has neglected her own care with missed insulin dosing and increased cough over the last 2 months per daughter at the bedside in the ICU room. No over noted n/v/diarrhea. had been able to eat. Unsure of cbgs. Objective Vital signs: Temperature 97.5 F 07/22/17 07:50 Pulse Rate 97 07/22/17 08:00 Respiratory Rate 18 07/22/17 08:31 Blood Pressure 154/68 H 07/22/17 00:06 Pulse Oximetry 98 07/22/17 08:31 Rhythm: Normal Sinus Rhythm Cardiac Ectopy: Rare PVC's Height/Weight/BMI: Height 5 ft 1 in Weight 85.9 kg Body Mass Index 36.7 - Constitutional Present: no acute distress, obese, disheveled - Routine HEENT Exam Head: Present: normocephalic, atraumatic Eye: Present: EOMI ENT: Present: mucous membranes moist, dentition normal - Routine Respiratory Exam Present: CTA bilaterally. Absent: wheezes - Routine Cardiovascular Exam Present: RRR. Absent: murmur - Routine Abdominal Exam Present: soft, normoactive bowel sounds, non distended. Absent: tenderness - Routine Extremities Exam Present: normal capillary refill - Routine Skin Exam Present: dry, warm - Routine Neurological Exam Present: alert, oriented X3, CN II-XII intact - Routine Lymphatic Exam Lymphatic: Absent: adenopathy - Routine Psychiatric Exam Present: normal affect Hospital Course This is a general summary of the patient's hospital course. For more details refer to the complete medical record. Hospital course: 07/21/2017 patient is resting comfortably and has ambulated with this therapy. Observed nursing do a Band-Aid change on the chronic heel sore and lebron avulsion. Patient remains extremely hypersensitive and writhes in pain to a simple Band- Aid removal. I've had discussion that with her that her lower extremity pain is due to her uncontrolled diabetes and that her hyperaesthesia is secondary to her chronic use of narcotics and she simply needs to find an alternative method of treatment for her pain as this does not work. I've suggested gabapentin for her. She is already told the nursing staff that she will not be continuing a diabetic diet as she "cannot afford it". Patient is being discharged with 7 days of ciprofloxacin for continued combination skin and pulmonary infections coverage 07/20/2017 Patient has recovering from the acute respiratory failure. But will require antibiotics to complete course of pneumonia treatment. Hyperosmolar nonketotic syndrome and metabolic encephalopathy also resolved. Patient continues to request high-level opiates to treat complaints certainly unwarranted the levels of pain that she rests with comfortably.. I have again asked about her "allergies"to aspirin Tylenol and all NSAIDs and find that her blanket statement of rash and swelling is not forthright. Continue breathing treatments. Continue blood pressure control. Patient has not mobilized significantly from the bed and will need physical therapy at this point. This is a shift in focus of care at this time this patient will require to ambulate manage self-care before discharging home Moving patient out of the ICU to regular medical floor. 07/19/2017 seen in the ICU and patient was intubated with adequate O2 saturation at 40% FIO2. Patient examined in chart review performed. Labs reviewed and decision- making for further critical care performed. Coordination with nursing and respiratory therapy to perform a trial weaning was had been arranged. Patient however despite maximum propofol was able to wriggle free of restraints reach up and self extubate. She has then been weaned down to a non-rebreather 6 L and has been holding her saturations. Case discussed with Dr. Singh. Appreciation for his input. For the pneumonia/acute respiratory failure, continue broad-spectrum antibiotics and breathing treatments. For the HHS, continue aggressive fluid resuscitation at 200 ML per hour as patient is still complaining of being dry. Patient is also vomiting and this is questionably due to opiate withdrawal as she is negative for any opiates despite family stating her as being on 25 g fentanyl and oxygen IR on a regular basis. Diagnoses: Acute respiratory failure with hypercapnea and hypoxia-- continue antibiotics Nonketotic hyperosmolar syndrome with associated metabolic encephalopathy type I diabetes medical noncompliance hazardous to health history of opiate dependence although negative on urine drug toxicity concern of diversion of controlled substances vomiting COPD Class 1 obesity BMI 33 Essential HTN, Dyslipidemia Critical care time today 35 minutes without procedures. 07/18/2017 HPI: Mrs. Sutherland remains intubated and unresponsive on propofol drip in critical condition. Further history from the family indicates that she has been on chronic narcotics including the 25 g fentanyl patch and oxy IR. It is unknown why she tested negative for opiates on her urine drug screen. The family INSISTS that she is terribly allergic to acetaminophen aspirin and all nonsteroidal anti-inflammatory's. ROS, medical history, surgical history, social history, family history: have read and agree with Dr. Zhu's assessment Physical exam: patient remains critically ill intubated and irritable but not coherently responsive. Blood pressures have swung wildly auscultation of chest remains coarse patient remains in restraints with ET and OG tube Lab work in imaging: agree with above but have concerns that patient's entire left lung appears occluded. This raises question of aspiration and I've ordered a CT of the chest Assessment and plan: agree with the diagnoses listed above by Dr. Zhu with following modifications: aspiration complete apace the of the left lung is concerning for aspiration and have ordered a chest CT Will discuss with Dr. Huyen in pulmonary tomorrow to see if bronchoscopy and pulmonary toilet is required elevated troponin: started patient on therapeutic Lovenox but family has declined aspirin. Patient has significant risk factors for coronary artery disease but this may be a type to non-ST elevated CO. I have discussed the case with Dr. Singh. My appreciation for his input already history of opiate dependence: concerning that there is diversion within the family. No unwitnessed opiate medications to be given DISPOSITION: 45 minutes critical care time without procedures performed thus far Time spent with patient: greater than 35 minutes Resuscitation Status: Full Code Discharge Plan - Discharge Disposition Disposition: Discharged Home, Self-Care *Condition: Improved Reason For Visit (Visit label in EMR): Respiratory failure,CAP - Discharge Medications *Discharge Medications: Continue Furosemide 40 mg PO DAILY #0 Omeprazole 20 mg PO DAILY #0 Budesonide 0.5 mg IH BID PRN #0 ampul PRN Reason: SHORTNESS OF AIR Metformin HCl 500 mg PO BIDWM #0 Ciprofloxacin HCl [Cipro] 500 mg PO BID #14 tab Calcium Carbonate/Vitamin D3 (Oyst-Yvan D Tablet) 1 tab PO DAILY #0 Vitamin E Mixed (Vitamin E) 1 tab PO BID #0 Atorvastatin Calcium [Lipitor] 20 mg PO DAILY #0 tab Albuterol Sulfate 2.5 mg AEROSOL Q4-6H PRN #0 PRN Reason: SHORTNESS OF AIR Lactobacillus Acidophilus [Acidophilus Probiotic] 1 mg PO DAILY #0 Oxybutynin Chloride [Oxybutynin Chloride ER] 5 mg PO DAILY #0 Ondansetron [Ondansetron Odt] 4 mg PO Q6HR #0 tab Prochlorperazine Supp [Compazine Supp] 0 mg RECTALLY Q12HR PRN #10 suppositor PRN Reason: Nausea &/Or Vomiting Colace (Docusate sodium) 100 mg capsule 100 mg PO BID #0 cap lisinopril 20 mg tablet 20 mg PO DAILY #0 tab insulin syringe-needle U-100 1 mL 31 gauge x 5/16" See Dose Instructions .ROUTE .MEDSUPPLY blood sugar diagnostic strips See Dose Instructions .ROUTE .MEDSUPPLY Phenergan (Promethazine) 6.25 mg/5 mL syrup 25 mg PO .prn PRN ml PRN Reason: Nausea magnesium oxide 500 mg capsule 500 mg PO .prn cap Novolin 70/30 100 unit/mL subcutaneous suspension See Label Instructions SQ .COMPLEX #10 ml NS Zyrtec (Cetirizine) 10 mg tablet 10 mg PO DAILY PRN tab PRN Reason: Allergy Symptoms Discontinued fentaNYL [Fentanyl] 1 patch TOP Q72H #0 patch cyclobenzaprine 10 mg tablet 10 mg PO DAILY #0 tab - Discharge Packet/Instructions *Diet: Diabetic, calorie restricted for 5lb monthly weight loss (1800 yvan daily) *Activity: Walk 3 times a day increasing activity to total 35 minutes everyday *Pain Management/Treatment: STOP USING OPIOIDS *Wound Care: Routine care of lebron avulsion. Follow up with primary doctor in 1 week *Expected Signs/Symptoms: Improving health if you do what is directed *Notify Physician if: Worsening shortness of breath *During Business Hours Contact: your doctor *After Business Hours Contact: ER *Pending Lab/Results: No Pending Lab - Referrals/Follow Up - Patient Handouts Patient Handouts: Community Acquired Pneumonia (GEN) - Dismissal Complete Discharge Instructions are:: Complete Physician Narrative - Narrative Attestation Narrative: Date: 07/22/17 Time: [id number]
[2017-07-22] MEDS: INSULIN REGULAR, HUMAN 100 UNIT/ML INJECTION SQ PRN (12:51)
--- NOTE | 2017-07-22 14:40 | Cardiology Report ---
PHARMACOLOGICAL STRESS NUCLEAR SCAN DATE OF PROCEDURE 07/21/2017 INDICATIONS Elevated troponin in the setting of acute respiratory failure. The patient is diabetic. ? [place]. NARRATIVE OF PROCEDURE The patient was unable to exercise on the treadmill due to generalized weakness. She is on room air. She underwent rest injection of a 99mTc Myoview dose of 12.5 mCi, a Lexiscan dose of 0.4 mg followed by a 99mTc Myoview dose of 33.2 mCi. The patient started feeling lightheaded. She had no angina or dyspnea. Rest EKG shows normal sinus rhythm - normal EKG. Mild sinus dysrhythmia. During pharmacological stress there were occasional PACs present. At one point they became more frequent. There was ST depression or elevation diagnostic of ischemia. Resting blood pressure was 201/65, 180/65. Heart rate 75 beats per minute. Blood pressure peaked at 210/64, heart rate 97 beats per minute which is 65% of age-predicted maximum heart rate. Stress and rest perfusion images were reviewed. They don't show any significant perfusion defects. Mild breast tissue attenuation artifact is noted. No significant ischemia or scar. Gated images showed normal wall motion, normal contractility, normal LV ejection fraction measured 56% on stress images and 59% on rest images. No abnormal cardiac uptake seen. TID ratio of 1.127 is normal. IMPRESSION 1. Inability to exercise on treadmill. 2. Pharmacological stress nuclear scan clinically, electrically and scintigraphically negative for ischemia with normal LV ejection fraction. 3. PACs were present. MTDD
== END 2017-07-22 18:01 | disposition home health service (06) | DRG 208 ==
LOC: ED 00:17 → CCU 03:15 → MED 07-20 14:05
PROVIDERS: ADMIT Hospitalist; ATTEND Family Medicine